=== PATIENT | female | born 1945 | race Caucasian/White ===

== ENCOUNTER 2016-09-12 08:36 | Inpatient (IN) | payer MEDICARE, OTHER ==
[~2016-09-12] VITALS: Ht 165.1 cm; Wt 72.0 kg
--- NOTE | ~2016-09-12 | ECHO ---
Transthoracic Echocardiography Report (TTE) Demographics Patient Name ELIECER WOLF Date of Study 09/14/2016 Patient Number [id number] Visit Number [id number] Date of 1945 Room Number G6306 Gender Female Number Age 71 year(s) Referring Juan Palmer MD Financial Agent Physician Janae Duran MD Physician Interpreting Janae Duran Supervisor Sheet Manufacturing Physician MD Supervising Ordering Janea Duran MD/MLP Physician Nurse Stress Product Marketing Analyst Conclusions Summary Dilated cardiomyopathy with severely reduced LV systolic function. The estimated left ventricular ejection fraction is 25-30%. Mild eccentric left ventricular hypertrophy. Diastolic assessment reveals Grade II pseudonormal diastolic function . The left atrium is moderately dilated. RV is normal in size with mildly reduced right ventricular function. There is mild pulmonary hypertension. The pulmonary pressure (RVSP) is 46 mmHg. Trivial pericardial effusion. Left sided pleural effusion. IVC imaging is consistent with normal RA pressures. Procedure Type of Study TTE procedure:2D Echocardiogram. Procedure Date Date: 09/14/2016 Start: 08:08 AM Study Location: Inpatient Portable Technical Quality: Adequate visualization Indications:Pre surgical clearance and Dyspnea/SOB. Appropriate Use Criteria: 9 Patient Status: Routine Rhythm: Sinus tachycardia HR: 88 bpm BP: 120/70 mmHg Allergies - Penicillin. - Other:(augmentin, amoxicillin, clavulanic acid). M-Mode/2D Measurements LV Diastolic Dimension: 6 cm LV Systolic Dimension: 5.77 cm LV Septum Diastolic: 1.04 cm LV Septum Systolic: 5.16 cm LV PW Diastolic: 1.16 cm AO Root Dimension: 2 cm Cardiac Output: 2.77 l/min AV Cusp Separation: 1.4 cm RV Diastolic Dimension: 1.81 cm LVOT: 2.1 cm IVC Inspiration: 0.55 cm LVOT VTI: 9.08 cm RV Base: 3.09 cm LV Stroke volume: 31.43 ml RV Length: 5.91 cm TAPSE: 1.26 cm TDI-S': 10 cm/s Doppler Measurements AV Peak Velocity: 1.17 m/s MV Peak E-Wave: 0.8 m/s AV Peak Gradient: 5.48 mmHg MV Peak A-Wave: 0.57 m/s AV Mean Gradient: 3 mmHg MV E/A Ratio: 1.41 LVOT Peak Velocity: 0.43 m/s MV P1/2t: 34 msec TR Gradient:43.82 mmHg PV Peak Velocity: 0.87 m/s Estimated RAP:3 mmHg PV Peak Gradient: 3.01 mmHg Estimated RVSP: 47 mmHg Estimated PASP: 46.82 mmHg E' Septal Velocity: 0.04 m/s A' Septal Velocity: 0.07 m/s E' Lateral Velocity: 0.05 m/s A' Lateral Velocity: 0.07 m/s MV E/E' Ratio: 17 Findings Left Ventricle The estimated left ventricular ejection fraction is 25-30%. Mild concentric left ventricular hypertrophy. Diastolic assessment reveals Grade II pseudonormal diastolic function . Right Ventricle RV is normal in size with mildly reduced right ventricular function. Left Atrium The left atrium is moderately dilated. Right Atrium Grossly normal right atrial size. IVC imaging is consistent with normal RA pressures. Mitral Valve Mild mitral regurgitation by color Doppler. Aortic Valve The aortic valve is mildly sclerotic. There is trivial aortic regurgitation by color Doppler. Tricuspid Valve Mild tricuspid regurgitation by color Doppler. There is mild pulmonary hypertension. The pulmonary pressure (RVSP) is 46 mmHg. Pulmonic Valve Mild pulmonic valve regurgitation by color Doppler. Pericardial Effusion Trivial pericardial effusion. Miscellaneous Visualized portions of the aortic root and ascending aorta appear normal in size. Pleural Effusion Left sided pleural effusion. Signature dtt: RIANA ALEXIS dtd: 09/14/16 0808 Physician Self Edit
--- NOTE | ~2016-09-12 | CON ---
PATIENT'S NAME: [facility] AGE: 71 Y [address] ROOM: [place] [address] LOCATION: GPCU ADMIT DATE: 09/12/2016 Consultation DISCHARGE DATE: FAMILY PHYSICIAN: Rudy Guo MD ATTENDING PHYSICIAN: AMANDA MARTINEZ DATE OF CONSULTATION: 09/12/2016 REFERRING PHYSICIAN: Darron De Leon REQUESTING PHYSICIAN: Dr. Martinez. REASON FOR CONSULTATION: Medical management. HISTORY OF PRESENT ILLNESS: The patient is a 71-year-old female. She is a poor historian, but past medical history as extracted is that of end-stage renal disease due to polycystic kidney, on peritoneal dialysis. She also has a history of cerebrovascular disease, status post left-sided CVA and CEA in 2003, also history of hypertension. The patient has been having a cyanotic appearing left toe for the last several weeks. She has undergone an elective angiography with Dr. Martinez today. Apparently, there were multiple blockages found, and at this point, there is a plan for femoropopliteal bypass as well as another carotid endarterectomy. At this point, the patient is comfortable. Denies any complaints aside from left great toe discomfort. PAST MEDICAL HISTORY: Essential hypertension, polycystic kidney disease, and cerebrovascular disease. PAST SURGICAL HISTORY: Significant for hysterectomy. CURRENT MEDICATIONS: 1. Aspirin. 2. Calcium carbonate. 3. Sensipar. 4. Voltaren Gel. 5. Colace. 6. Lactobacillus. 7. Levothyroxine. PATIENT'S NAME: [facility] AGE: 71 Y [address] ROOM: [place] [address] LOCATION: GPCU ADMIT DATE: 09/12/2016 Consultation DISCHARGE DATE: FAMILY PHYSICIAN: Rudy Guo MD ATTENDING PHYSICIAN: AMANDA MARTINEZ 8. Lorazepam. 9. Midodrine. 10. Omeprazole. 11. Zofran. 12. Simvastatin. 13. Sodium bicarbonate. 14. Carafate. 15. Ultram. SOCIAL HISTORY: Significant for longstanding tobacco history with the patient having quit several years ago. FAMILY HISTORY: Reviewed and significant for polycystic kidney disease in her grandmother. PHYSICAL EXAMINATION: VITAL SIGNS: At this point, temperature 97.6, pulse is 79, respirations are 20, blood pressure 115/68, and saturating 97% on room air. GENERAL: Appears as an elderly frail female, in no acute distress. NEUROLOGICAL: Nonfocal. VASCULAR: Reveals diminished pulses over the right lower extremity. PSYCHIATRIC: Reveals appropriate mood, cognition, and affect. LABORATORY DATA: No lab studies are available as of yet. IMPRESSION AND RECOMMENDATIONS: This is a 71-year-old female, who has been admitted for further workup of cerebrovascular/peripheral vascular disease. Individual problems to be addressed are, 1. Cardiac optimization. This has already been ordered. 2. End-stage renal disease, on peritoneal dialysis. This has already been addressed by the Nephrology team. 3. Orthostatic hypotension. We will continue the patient's midodrine. 4. Symptomatic support. We will provide her with pain control and antiemetics as needed. Additional management will depend on clinical course. Time dedicated to this patient's encounter is 25 minutes. PATIENT'S NAME: ELIECER WOLF [facility] AGE: 71 Y [address] ROOM: [place] [address] [facility] ADMIT DATE: 09/12/2016 Consultation DISCHARGE DATE: FAMILY PHYSICIAN: Rudy Guo MD ATTENDING PHYSICIAN: AMANDA MARTINEZ MD AVK/stephanie /[id number] d: 09/13/16 0029 t: 09/16/16 1252, CONSULTATION REPORT
--- NOTE | ~2016-09-12 | CON ---
PATIENT'S NAME: ELIECER WOLF [facility] AGE: 71 Y [address] ROOM: [address] [place], [place] [address] LOCATION: GPCU ADMIT DATE: 09/12/2016 Consultation DISCHARGE DATE: FAMILY PHYSICIAN: Rudy Guo MD ATTENDING PHYSICIAN: AMANDA MARTINEZ REFERRING PHYSICIAN: Darron De Leon REQUESTING PROVIDER: Dr. Martinez. REASON FOR CONSULTATION: Preop evaluation. CHIEF COMPLAINT: Pain in the right toe. HISTORY OF PRESENTING ILLNESS: The patient is a very pleasant 71-year-old female, who has history of significant peripheral vascular disease. She has had symptoms of pain in her right toe that has been getting worse for the past few months, especially worse after she hit her toe over the door about a few weeks ago. The patient has had previous fistula evaluation, but she decided to continue her peritoneal dialysis. She came in as an outpatient to have a peripheral angiogram today and she was noted to have significant extensive calcific peripheral vascular disease on the right side, especially in the common femoral artery area as well as some in the common iliac area as well. She underwent cath via the right brachial artery access. She also has significant peripheral vascular disease including left carotid artery stenosis, status post endarterectomy. She used to smoke several years ago about half a pack a day for about 15 years. She is currently a nonsmoker. She does have history of hypertension and hyperlipidemia. However, she does not have any history of diabetes. She has been on peritoneal dialysis for adult polycystic kidney disease and has been on peritoneal dialysis for about 2 years. The patient reports significant pain in her right great toe at this time, and she is getting narcotics for that that is helping somewhat. She reports that her dyspnea on exertion has been getting progressively worse in the last month. She is able to walk less than a block and she reports it is both her shortness of breath as well as leg pain that stop her from walking. No chest pain, tightness, pressure, or heaviness. No jaw pain or arm pain. No abdominal pain. No cough or sputum production. No fever or rashes. No changes in her vision, strength, or swallowing. She does have hip pain on the PATIENT'S NAME: [facility] AGE: 71 Y [address] ROOM: [address] [place], [place] [address] LOCATION: GPCU ADMIT DATE: 09/12/2016 Consultation DISCHARGE DATE: FAMILY PHYSICIAN: Rudy Guo MD ATTENDING PHYSICIAN: AMANDA MARTINEZ right side and muscle pain on the right thigh. CARDIAC RISK FACTORS: 1. Tobacco use. 2. Hypertension. 3. Hyperlipidemia. 4. Peripheral vascular disease. 5. Carotid stenosis. 6. End-stage renal disease. ALLERGIES: PENICILLIN CAUSES HIVES. PAST MEDICAL HISTORY: 1. Polycystic kidney disease. 2. Hypertension. 3. Hyperlipidemia. 4. Peripheral vascular disease. 5. Arthritis. 6. End-stage renal disease. 7. Insomnia. 8. Secondary hyperparathyroidism. 9. Thyroid disease. 10. GERD. 11. Anxiety. 12. Tinea unguium. PAST SURGICAL HISTORY: Bilateral nephrectomy in 01/2016, fistulogram with declotting of thrombus in 03/2015, hysterectomy, right total hip arthroplasty, left thyroidectomy, hemorrhoidectomy, left carotid endarterectomy, and right upper arm brachiocephalic AV fistula creation. FAMILY HISTORY: No premature coronary artery disease or sudden cardiac . SOCIAL HISTORY: She quit smoking. No illicit drug abuse or alcohol abuse. She drinks about 1 cup of coffee every day. HOME MEDICATIONS: She is on: 1. Aspirin 81 daily. 2. Synthroid 50 mcg daily. 3. Lorazepam 1.5 mg at bedtime. PATIENT'S NAME: ELIECER WOLF [facility] AGE: 71 Y [address] ROOM: [address] [place], [place] [address] LOCATION: GPCU ADMIT DATE: 09/12/2016 Consultation DISCHARGE DATE: FAMILY PHYSICIAN: Rudy Guo MD ATTENDING PHYSICIAN: AMANDA MARTINEZ 4. Docusate 100 mg b.i.d. 5. Midodrine 10 t.i.d. 6. Omeprazole 40 daily. 7. Zofran 4 mg p.r.n. 8. Sensipar 30 mg at bedtime. 9. Sodium bicarb 650 p.o. t.i.d. 10. Zocor 40 mg at bedtime. 11. Sucralfate 1 g p.o. t.i.d. 12. Tramadol 50 b.i.d. p.r.n. pain. 13. Diclofenac 100 t.i.d. p.r.n. hip pain. 14. Calcium carbonate 600 t.i.d. 15. Lactobacillus p.o. daily. PHYSICAL EXAMINATION: VITAL SIGNS: Respirations are 20, she is afebrile at 97.6, and O2 sats are 96% on room air. Her weight is 76.2 kg. Blood pressure is 115/68. GENERAL: She is in mild distress from pain from her right toe. She is alert and oriented to time, place, and person. SKIN: Warm and dry. Mucous membranes moist. LUNGS: Respirations nonlabored. Clear to auscultation bilaterally. HEART: S1 and S2. Regular rate and rhythm. No murmurs, gallops, or rubs. Decreased pulses bilaterally for femoral. ABDOMEN: Soft. Bowel sounds positive. EXTREMITIES: She does have discoloration of her right great toe. NEUROLOGIC: Grossly normal. No changes in her speech or strength. PSYCH: She has appropriate mood and answers questions appropriately. CARDIAC STUDIES: None. IMPRESSION AND PLAN: 1. Severe extensive and calcific peripheral vascular disease, especially noted on the right side with significantly decreased perfusion and awaiting upcoming femoral-popliteal bypass. 2. History of carotid artery stenosis, status post endarterectomy. 3. End-stage renal disease secondary to adult polycystic kidney disease and on peritoneal dialysis. 4. Dyspnea on exertion that is relatively new. 5. Hypertension. 6. Hyperlipidemia. PLAN: At this time, the patient is awaiting high-risk vascular surgery and she has several risk factors for coronary artery disease including significant peripheral vascular disease and carotid artery stenosis as well as her end- PATIENT'S NAME: ELIECER WOLF [facility] AGE: 71 Y [address] ROOM: [address] [place] [id number] [facility] AD[facility] DATE: 09/12/2016 Consultation DISCHARGE DATE: FAMILY PHYSICIAN: Rudy Guo MD ATTENDING PHYSICIAN: AMANDA MARTINEZ stage renal disease, requiring peritoneal dialysis, hypertension, hyperlipidemia put her at very high risk and pretest probability for coronary artery disease. However, I am very concerned about her dyspnea on exertion. I do understand she requires relatively urgent surgery, but I do think given her poor functional capacity and new symptoms of dyspnea on exertion, we need to work this up with a 2D echocardiogram as well as a Lexiscan nuclear stress test to make sure she does not have any hives risk findings up prior to upcoming surgery. I do encourage to continue aspirin and statins during the periop period. Based on the stress test, we will finally risk stratify, but based on the revised cardiac risk index, she is at moderate risk for periop adverse outcomes with noncardiac surgery and her estimated rate of DC, pulmonary edema, ventricular fibrillation, cardiac arrest, or complete heart block is 6.6%. If she has high risk findings on the stress test, she will need a heart catheterization. Otherwise, we will manage medically and let her get her urgent surgery given her extreme symptoms and significant peripheral vascular disease. Thank you, Dr. Martinez for allowing us to participate in the care of Mrs. Wolf. RIANA ALEXIS MD AT/modl /[id number] d: 09/12/16 2155 t: 09/15/16 1012, CONSULTATION REPORT
--- NOTE | ~2016-09-12 | CON ---
PATIENT'S NAME: LUCIANO JALIL [facility] AGE: 71 Y [address] ROOM: [place] [address] LOCATION: GPCU ADMIT DATE: 09/12/2016 Consultation DISCHARGE DATE: FAMILY PHYSICIAN: Rudy Guo MD ATTENDING PHYSICIAN: AMANDA FELIX DATE OF CONSULTATION: 10/07/2016 REFERRING PHYSICIAN: Darron De Leon INITIAL PSYCHIATRIC EVALUATION/CONSULTATION DATA: The patient is a 71-year-old female, currently admitted to [facility]. Consultation requested by Dr. Barba. DIAGNOSES: At time of evaluation, F33.2, major depressive disorder, recurrent, severe, without psychosis. RECOMMENDATIONS: As already approved by the patient after talking about risks, benefits, and side effects, we are going to continue with the Remeron 50 mg every night, but we are going to switch the Seroquel from 50 mg p.r.n. to 50 mg h.s. schedule that can be repeated when the patient is not sleeping within an hour. The patient is not currently psychotic, suicidal, or homicidal, so she can be discharged whenever medically cleared. HISTORY: This nice lady ended up in [facility] with multiple medical problems. She has been depressed, and for that reason, a psychiatric consultation was requested. I came to [facility], reviewed electronic records, the paper records, talked to the nurse for collateral information and with the patient on a [id number]. The patient is a good historian, who is telling me that she had seen psychiatrist in the past because of depression, even though she says that she has not been on antidepressant that she knows off, but she is on Remeron at present time, that was recently prescribed in the in the hospital. The patient has never been psychotic, manic, or hypomanic. No issues with obsession and compulsion, eating disorder, post traumatization, or gambling. SUBSTANCE HISTORY: Noncontributory. She is not a smoker, a drinker, or a drug user. PAST PSYCHIATRIC HISTORY: Never in a psychiatric facility. Never actually suicidal. PATIENT'S NAME: [facility] AGE: 71 Y [address] ROOM: [place] [address] LOCATION: [facility] ADMIT DATE: 09/12/2016 Consultation DISCHARGE DATE: FAMILY PHYSICIAN: Rudy Guo MD ATTENDING PHYSICIAN: AMANDA FELIX MEDICAL HISTORY: Per history and physical. PERSONAL HISTORY: She lives by herself. She is a , has been twice, has had 4 children, who are supportive of her. HISTORY OF ABUSE: Noncontributory. The patient has never been abused physically, sexually, or psychologically. FAMILY HISTORY: Noncontributory. MENTAL STATUS EXAMINATION: This is a lady, cooperative, good hygiene, good eye contact. No psychomotor agitation or retardation. Speech is normal in volume, tone, and production. Mood is described as depressed. Affect is restricted, but appropriate to thought content. Thought content is relevant. The patient is denying current suicidal or homicidal ideation. Denying any auditory or visual hallucination. No delusional thoughts. Thought process is coherent, congruent. No loosening of association. Insight and judgment seem to be fair. Memory is within normal limits. She is alert and oriented. Intelligence is average. STRENGTHS: Intelligence, access to services. BARRIERS: Just physical health. SHAN GROVE MD HG/modl /[id number] d: 10/07/16 1301 t: 10/08/16 1009, CONSULTATION REPORT
--- NOTE | ~2016-09-12 | OR ---
PATIENT'S NAME: ELIECER WOLF [facility] AGE: 71 Y [address] ROOM: [address] [address] LOCATION: GPCU ADMIT DATE: 09/12/2016 OR/Procedure Report DISCHARGE DATE: FAMILY PHYSICIAN: Rudy Guo MD ATTENDING PHYSICIAN: SPENCER MARTINEZ SURGEON: Spencer Martinez MD DIRECTOR OF CASEWORK DEPARTMENT: DATE OF PROCEDURE: 09/12/2016 PREOPERATIVE DIAGNOSIS: Critical limb ischemia of the right lower extremity. POSTOPERATIVE DIAGNOSIS: Critical limb ischemia of the right lower extremity. PROCEDURE: Aortogram and bilateral lower extremity runoff via the right brachial artery. ACTIMIZE ARCHITECT: Jonathon. ANESTHESIA: MAC local. ESTIMATED BLOOD LOSS: 25 mL. OPERATIVE FINDINGS: As follow: She had a high-grade distal aortic lesion, high-grade right common iliac lesion, high-grade right common femoral and SFA lesion with normal runoff to the right leg. The left leg had a patent common iliac, but a total occlusion of the common femoral on the left. DESCRIPTION OF PROCEDURE: The patient was brought to the Check And Transfer Beader, placed supine on the bolt labeler table, prepped and draped in a sterile manner. Preoperative time-out was performed. We gained access via the right brachial, infiltrated with 1% lidocaine. Using ultrasound guidance, I then entered the brachial artery with a micropuncture needle, followed by a micropuncture wire, followed by a micropuncture sheath. We exchanged using Seldinger technique for a 5-Faroese short sheath. We went up to the brachial artery to the axillary, entered the aorta. We then made our way down to the distal aorta below the renals. We performed a series of angiograms from the distal aorta, the findings were as above. The patient will require a common femoral endarterectomy on the right with a possible right common iliac stent. A needle in-bent, that we are unable to perform this, we will have to perform an endarterectomy on the left and then do a fem-fem bypass overall and also a left iliac stent to make sure that we have enough inflow. The sheath was removed. Pressure was held in the right arm for 10 minutes. The patient tolerated the procedure well and transferred to recovery room and then up to the floor. PATIENT'S NAME: ELIECER WOLF [facility] AGE: 71 Y [address] ROOM: [address] [place], [place] [address] LOCATION: GPCU ADMIT DATE: 09/12/2016 OR/Procedure Report DISCHARGE DATE: FAMILY PHYSICIAN: Rudy Guo MD ATTENDING PHYSICIAN: SPENCER MARTINEZ SPENCER MARTINEZ MD FKM/modl /[id number] d: 09/12/162014 t: 09/13/16 1042, OPERATIVE SUMMARY
--- NOTE | ~2016-09-12 | CON ---
PATIENT'S NAME: LUCIANO JALIL [facility] AGE: 71 Y [address] ROOM: [place] [address] LOCATION: [facility] ADMIT DATE: 09/12/2016 Consultation DISCHARGE DATE: FAMILY PHYSICIAN: Rudy Guo MD ATTENDING PHYSICIAN: AMANDA MARTINEZ DATE OF CONSULTATION: 10/01/2016 LOCATION: [place] [address]. REFERRING PHYSICIANS: Alexandria Cain APRN and Avelino Wilson D.O. REASON FOR CONSULTATION: This is a palliative care referral for the patient and family support. HISTORY OF PRESENT ILLNESS: This 71-year-old female was admitted on 09/12/2016 with coronary artery disease. She had seen her formal wear rental clerk for onychomycosis and was found to have a purple toes. She was then seen by vascular surgeon Dr. Martinez and was found to have ischemic right great toe after undergoing an ABIs. In arterial duplex scan. Multiple blockages were identified. She had a right common femoral endarterectomy with bovine pericardial patch for critical ischemia of the right lower extremity. On 09/17/2016, she has a known history of polycystic kidney disease. Had both kidneys removed. Had been on hemodialysis and then was switched to peritoneal dialysis and has now been switched back to hemodialysis. She is also found to have a cardiac stress test and found that her ejection fraction was 25% to 30%. She underwent a cardiac catheterization with 75% of left main disease in the LAD in occlusion of the circumflex. The patient had been hypotensive today and a lot of purulent drainage coming from surgical sites. Wound VAC was placed. The patient had some confusion during the night, but she is more awake now. Had severe pain in her surgical sites with packing and wound VAC on. States pain, it was terrible 10/10 and it is still hurting quite a bit even after the procedure has been done. No nausea or vomiting. Decreased appetite. Eating first meal the day about 50%. She is alert and oriented. No nausea or vomiting. Tires very easily. PAST MEDICAL HISTORY: 1. Dyslipidemia. 2. Long-standing tobacco history. 3. Hypertension. PATIENT'S NAME: [facility] AGE: 71 Y [address] ROOM: [place] [address] LOCATION: [facility]PCU ADMIT DATE: 09/12/2016 Consultation DISCHARGE DATE: FAMILY PHYSICIAN: Rudy Guo MD ATTENDING PHYSICIAN: AMANDA MARTINEZ 4. Anxiety. 5. Hyperparathyroidism. 6. Gastroesophageal reflux disease. 7. Hypothyroidism. 8. Osteoarthritis. 9. Polycystic kidney disease. 10. End-stage renal disease, on hemodialysis. 11. History C.diff. 12. Cerebrovascular disease. 13. Orthostatics hypertension, severe. 14. Peripheral vascular disease. PAST SURGICAL HISTORY: 1. Bilateral nephrectomies. 2. AV fistula creation. 3. Peritoneal dialysis catheter implant. 4. Left carotid enterectomy. 5. Hysterectomy. 6. Fistulogram. 7. Declotting of thrombus. 8. Right total hip arthroplasty. 9. Left thyroidectomy. 10. Hemorrhoidectomy. 11. Right upper arm brachiocephalic AV fistula. ALLERGIES: PENICILLIN CAUSES HIVES. SOCIAL HISTORY: The patient had been living at home in the [place]. She is . She has a daughter who lives here in [facility]. She is retired former smoker, smoked for 20 years. No alcohol use. SMOKING HISTORY: Half a pack a day for 22 years, quit in 2014. FAMILY HISTORY: Grandmother had a history of polycystic disease. HOME MEDICATIONS: 1. Aspirin 81 mg daily. 2. Tums Extra Strength 600 mg t.i.d. 3. Sensipar 30 mg at bedtime. 4. Diclofenac 1% gel applied t.i.d. for hip pain p.r.n. 5. Colace 100 mg twice a day. PATIENT'S NAME: ELIECER WOLF [facility] AGE: 71 Y [address] ROOM: [address] [place] [address] LOCATION: [facility]PCU ADMIT DATE: 09/12/2016 Consultation DISCHARGE DATE: FAMILY PHYSICIAN: Rudy Guo MD ATTENDING PHYSICIAN: AMANDA MARTINEZ 6. Probiotics one capsule daily. 7. Levothyroxine 50 mcg daily. 8. Ativan 1.5 mg at bedtime. 9. Midodrine 10 mg t.i.d. 10. Omeprazole 40 mg daily. 11. Zofran 80 mg daily p.r.n. nausea. 12. Zocor 40 mg at bedtime. 13. Sodium bicarb 650 mg t.i.d. 14. Carafate 1 g t.i.d. 15. Ultram 50 mg p.o. b.i.d. REVIEW OF SYSTEMS: A complete review of systems was done and is negative except as mentioned in HPI and listed below. GI: Decreased appetite not hungry. Last bowel movement was 09/28. GENERAL: Severe fatigue. PHYSICAL EXAMINATION: This is 71-year-old, female: VITAL SIGNS: Temperature 97.6, heart rate 101, respirations 20, blood pressure 141/63, O2 sats 96% on 5 L. She is 5 feet 5 inches, weighs 167 pounds with a BMI of 27.9. GENERAL: Alert and oriented, in no acute distress and just tires very easily. SKIN: Warm and dry. Color pale. Wound VAC to the right groin area. Dressings dry and intact on abdomen. Multiple ecchymotic areas noted on arms. HEENT: Normocephalic and atraumatic. Sclerae are nonicteric. Conjunctivae pale pink. MOUTH: [place] and moist without exudate. LYMPH: No cervical adenopathy or thyromegaly. RESPIRATORY: Clear to auscultation bilaterally. Breath sounds even and regular. CARDIAC: S1, S2 without murmurs or bruits. ABDOMEN: Soft and tender in areas around dressing. Positive bowel tones. There is no hepatosplenomegaly. MUSCULOSKELETAL: Appropriate range of motion. EXTREMITIES: No cyanosis or deformities. Palliative performance scale is 40% mainly in bed, unable do most activity, total care. Intake is reduced.Conscious level is full. IMPRESSION: 1. Pain. 2. Anorexia. 3. Fatigue. PLAN: PATIENT'S NAME: ELIECER WOLF [facility] AGE: 71 Y [address] ROOM: [address] [address] LOCATION: GPCU ADMIT DATE: 09/12/2016 Consultation DISCHARGE DATE: FAMILY PHYSICIAN: Rudy Guo MD ATTENDING PHYSICIAN: AMANDA MARTINEZ 1. Discussion of chronic condition. Met with patient and her daughter. They have a very good understanding of overall condition, more purulent drainage from wounds having to have wound VAC. The patient is concerned of extreme pain with dressing changes. Would like to get some help with pain relief and also had some drains last night that bothered the patient. We will discuss further the patient tires easily. 2. Long-term: The patient is wanting to fight and be there for her children. Hopes she will be able to go and continue her dialysis and go home with her daughter. 3. Code status and advance directive. The patient is a full code. No advanced directive is on the chart. We will explore this further looking for advanced directive. Chart states that she does have a copy. RECOMMENDATIONS: Pain, may consider using lidocaine 2% gel prior to dressing change to help decrease pain and IV Dilaudid 0.1 to 0.2 fifteen minutes prior to dressing change. If not effective may add hydromorphone add hydromorphone directly into the lidocaine gel to help with local affecting decreased systemic effects of the narcotic. Anorexia and depression mirtazapine-has been started at bedtime and is helping appetite, fatigue periods of rest,and sleeping better at night. We will continue to support patient and daughter. Total time was 45 minutes. Thank you for allowing me to assist this patient and family. CHARBEL EAGLE NP FOR MD CHELA CASTILLO/stephanie /[id number] d: 10/02/16 1002 t: 10/14/16 1023, CONSULTATION REPORT
--- NOTE | ~2016-09-12 | CATH ---
Cardiac Diagnostic Report Demographics Patient Name LUCIANO Lizarraga Gender Female Date of 1945 Age 71 year(s) Patient Number [id number] Date of Study 09/15/2016 Visit Number [id number] Room Number G62[address] [place] [id number] Ht 165.1 cm Wt 82.1 kg Referring Sari Vasquez Primary Physician Physician Juan Palmer MD Performing [place] Secondary Physician Physician Renee SALMON Diagnostic [facility] Assisting Physician Physician Renee SALMON Interventional Physician Fiscal Services Director Physician Findings and Conclusions Diagnostic Findings and Conclusion Obstructive Triple vessel CAD, including ostial LM, proximal LAD and OM2 branch. Critical lesion in mid RCA (non dominant vessel). Diagnostic Recommendations Refer for CABG. Discussed with Cardiothoracic surgeon. Procedure Description The patient was brought to the diagnostic cardiac catheterization-EP laboratory in the fasting, non-sedated state. Informed consent was obtained in the written and verbal form after the risks and benefits were explained. The patient had no further questions and agreed to proceed. The planned puncture-incision site(s) were shaved and prepped with ChloraPrep and draped in the usual sterile manner. Conscious sedation, supplemental oxygen, and pain control medications were delivered by a registered nurse under physician guidance. Surface ECG rhythm, blood pressure measurement, and pulse oximetry were monitored throughout the procedure. Arterial access. The access site was infiltrated with lidocaine. The vessel was entered with the Seldinger technique. A sheath was advanced into the vessel and used for catheter placement. Selective left coronary angiography. A catheter was advanced into the left coronary vessel ostium under Fluoroscopic guidance. Contrast was injected by hand. Images were obtained in multiple projections. Selective right coronary angiography. A catheter was advanced into the right coronary vessel ostium under fluoroscopic guidance. Contrast was injected by hand. Images were obtained in multiple projections. Left heart catheterization. A catheter was advanced across the aortic valve to the left ventricle under fluoroscopic guidance. Resting hemodynamics were obtained. Arterial artery hemostasis was achieved. The patient was transferred to a regular nursing floor via cart accompanied by a nurse. The patient left the laboratory in stable condition. Diagnostic Cath Status: Urgent Procedure Procedure Type Diagnostic procedure:Angiography:, Coronary Angios w/[facility] Indications: Non-invasive tests a cardiolite test positive, Cardiomyopathy, Dyspnea with exertion and pre surgical clearance. The procedure was explained in detail to the patient. Risks, complications and alternative treatments were reviewed. Written consent was obtained. Medications Reviewed with Patient prior to Procedure. Angiographic Findings Dominance: Mixed Cardiac Arteries and Lesion Findings LMCA: Radiolucent opacity in Left Main. No reflux of dye into guide. Dampened pressure waveforms. Lesion on LMCA: Ostial.90% stenosis . LAD: Diag small vessel. Lesion on Prox LAD: Proximal subsection.80% stenosis . Comments:calcified. LCx: Mid CX calcified. OM2 branch with 95% stenosis. Lesion on 2nd Ob Jesenia: Proximal subsection.95% stenosis . Lesion on 2nd Ob [place]enia: Mid subsection.50% stenosis . Lesion on Mid CX: Mid subsection.50% stenosis . Lesion on 1st LPL: Proximal subsection.90% stenosis . RCA: small non dominant vessel. Lesion on Mid RCA: Mid subsection.90% stenosis . Coronary Tree Procedure Data Procedure Date Date: 09/15/2016Start: 10:08 AMEnd: 11:14 AM Entry Locations - Retrograde Percutaneous access was performed through the Right Radial artery (Primary location). A 6 Fr sheath was inserted. Hemostasis was successfully obtained using Mechanical Compression. Closure Comments: Radial band applied by Santosh Mckee. 18 ml's.. Procedure Medications Order and Administration + + + + + !Time !Medication !Dosage !Route ! + + + + + !09/15/2016 10:04 AM !0.9% NaCl !10 ml/hr !I.V. drip ! + + + + + !09/15/2016 10:00 AM !Versed !1 mg !I.V. ! + + + + + !09/15/2016 10:02 AM !Fentanyl !50 mcg !I.V. ! + + + + + !09/15/2016 10:04 AM !Oxygen !2 l/min !NC ! + + + + + !09/15/2016 10:15 AM !Heparin (ACC_3) !5000 units !I.V. ! + + + + + !09/15/2016 10:24 AM !Fentanyl !50 mcg !I.V. ! + + + + + !09/15/2016 10:42 AM !Heparin (ACC_3) !2000 units !I.V. ! + + + + + !09/15/2016 11:09 AM !Oxygen ! !NC ! + + + + + Devices Used - A5 Fr. BS JR 4 Diag. Catheterwas used for:Right coronary angiography. - A5 Fr. BS JL 3.5 Diag. Catheterwas used for:Left coronary angiography.Unable to cannulate the vessel. - A5FR ULTIMATE 2 DIAGNOSTIC CATH ([id number])was used for:Left coronary angiography.Unable to cannulate the vessel. - A6 Fr. XBLAD 3.5 Guide Catheterwas used for:Left coronary angiography. - A6 Fr. JL 3 JJ Guide Catheterwas used for:Left coronary angiography. Contrast Material - Isovue [id number] ml Fluoroscopy Time: Diagnostic: 19:24 minutes. Total: 19:24 minutes. Fluoroscopy Dose: Diagnostic: 1532 mGy. Total: 1532 mGy. Estimated Blood Loss: 10 ml. Medical History Performed Procedures and Imaging Results - Stress testing with SPECT MPIwas performed. Results were: Positive. Risk/Extent of ischemia was: High risk. History of Disease + + + + !Diagnosis !Date !Comments ! + + + + !Hypertension ! ! ! + + + + Allergies - Penicillin. - Other:(augmentin, amoxicillin, clavulanic acid). Risk Factors The patient risk factors include:peripheral arterial disease, cerebrovascular disease, treated hypercholesterolemia, treated hypertension, family history of premature CAD, last creatinine: 9.5 mg/dl, creatinine clearance: 6.84 ml/min, dyslipidemia, renal failure currently treated with dialysis and former tobacco use ( years not smokin). Admission Data Admission Date: 09/12/2016 Admission Time: 12:41 PM Admit Source: Other Insurance Payors: Medicare. Admission Medications + +------+------+ + + + + !Medication !Dosage!Times !Last !Last !Administered !Comments ! ! ! !Per !Delivery !Delivery ! ! ! ! ! !Day !Date !Time ! ! ! + +------+------+ + + + + !Aspirin ! ! ! ! !Yes ! ! !(any) ! ! ! ! ! ! ! + +------+------+ + + + + !Beta ! ! ! ! !Yes ! ! !Samuel ! ! ! ! ! ! ! !(any) ! ! ! ! ! ! ! + +------+------+ + + + + !Statin ! ! ! ! !Yes ! ! !(any) ! ! ! ! ! ! ! + +------+------+ + + + + Clinical Evaluation Leading to Procedure - The patient's CAD presentation was assessed as: Unstable angina. - The patient's anginal syndrome during the past two weeks was assessed as: Class II according to the [place] Cardiovascular Society Classification System (CCS). Anti-anginal medications were prescribed during the past two weeks. The medication is: Beta Blockers. - The patient has been in a state of heart failure within the past two weeks. - The patient's heart failure status was assessed as NYHA Class III, with CHF symptoms of BAKER. - The reason for the patient's laboratory apparatus glass blower visit is evaluation of cardiomyopathy and/or evaluation of left ventricular systolic dysfunction, and pre-operative evaluation before non-cardiac surgery. Hemodynamics Condition: Rest O2 Consumption: Estimated: 185.20Heart Rate: 86 bpm Pressures (mmHg) +-----+ + !Site !Pressure ! +-----+ + !LV !136/20 ,19 ! +-----+ + !LV !135/19 ,15 ! +-----+ + !AO !159/66 (105) ! +-----+ + !AO !162/91 (118) ! +-----+ + Valve Gradients and Areas + +---------+---------+---------+ +---------+ + !Valve !Peak !Mean !Area !Index !Flow !Source ! + +---------+---------+---------+ +---------+ + !Aortic !0 !0 ! ! ! ! ! + +---------+---------+---------+ +---------+ + !Aortic !0 !0 ! ! ! ! ! + +---------+---------+---------+ +---------+ + Shunts Oxygen Values O2 Capacity 157.76 O2 Consumption 185.2 Signatures dtt: RENEE ALEXIS dtd: 09/15/16 1008 Physician Self Edit
--- NOTE | ~2016-09-12 | OR ---
PATIENT'S NAME: ELIECER WOLF [facility] AGE: 71 Y [address] ROOM: [address] [address] LOCATION: GICU ADMIT DATE: 09/12/2016 OR/Procedure Report DISCHARGE DATE: FAMILY PHYSICIAN: Rudy Guo MD ATTENDING PHYSICIAN: SPENCER FELIX SURGEON: Spencer Felix MD GREIGE GOODS EXAMINER: DATE OF PROCEDURE: 09/17/2016 PREOPERATIVE DIAGNOSIS: Critical ischemia of the right lower extremity. POSTOPERATIVE DIAGNOSIS: Critical ischemia of the right lower extremity. PROCEDURE PERFORMED: Right common femoral endarterectomy with bovine pericardial patch. MAILING MANAGER: ADELINE Eller. ANESTHESIA: General. ESTIMATED BLOOD LOSS: 150 mL. OPERATIVE FINDINGS: Minimal signal at the end of the case; however no abnormality seen on completion angiogram. DESCRIPTION OF PROCEDURE: The patient was brought to the operating room, placed supine on the operating table, prepped and draped in a sterile manner. Preoperative time-out was performed. The patient was also received in CABG, received all her invasive lines for that at the same time. We made a standard incision in the right groin, incised the fascia in a longitudinal manner. Dissected out the common, the profunda, and the superficial femoral artery. We then gave 5000 units of heparin and we clamped proximally in the common femoral artery on the SFA and as well as the profunda. We then made an arteriotomy, removed the entire plaque burden from the common femoral artery and the SFA. We then repaired the artery with a 1 x 11 bovine pericardial patch using two 6-0 running [place] sutures. We removed the clamps. We achieved hemostasis with interrupted Prolene stitches within the patch. We got a strong Doppler signals in the SFA and the profunda; however, we did not have Doppler signals in the leg and the foot. We performed a completion angiogram which showed patent vessels without any evidence of embolization, but we still do not have signal, so we opted to pass a size 3 Michelle down the SFA to see if we could find any source of embolus which we did not. We repaired the artery. We decided not to delay her CABG any further. We packed the wound and then the patient continued with the CABG. Postoperatively, her foot appeared to be doing better with a DP signal that was found in the ICU. The patient PATIENT'S NAME: ELIECER WOLF [facility] AGE: 71 Y [address] ROOM: [place] [address] LOCATION: GICU ADMIT DATE: 09/12/2016 OR/Procedure Report DISCHARGE DATE: FAMILY PHYSICIAN: Rudy Guo MD ATTENDING PHYSICIAN: SPENCER FELIX tolerated the procedure well and continued on to CABG. SPENCER FELIX MD FKM/modl /[id number] d: 09/18/16 0019 t: 09/22/16 1516, OPERATIVE SUMMARY
--- NOTE | ~2016-09-12 | CON ---
PATIENT'S NAME: [facility] AGE: 71 Y [address] ROOM: [place] [address] LOCATION: GPCU ADMIT DATE: 09/12/2016 Consultation DISCHARGE DATE: FAMILY PHYSICIAN: Rudy Guo MD ATTENDING PHYSICIAN: AMANDA MARTINEZ DATE OF CONSULTATION: 09/14/2016 REFERRING PHYSICIAN: Darron De Leon REQUESTING PHYSICIAN: Renee Cardoso MD REASON FOR CONSULTATION: Coronary artery disease. HISTORY OF PRESENT ILLNESS: The patient is a 71-year-old white female with several complicated disease processes. Just recently, she was in to see the packing and shipping clerk for onychomycosis and was found to have a purple toe. She was prompted to see a vascular surgeon. She was in to see Dr. Martinez with findings of an ischemic right great toe after having undergone ABIs and arterial duplex scan. Multiple blockages were identified. From here, the patient was set up over at [facility] for procedures to include bilateral common femoral artery endarterectomies with possible stenting to the right common femoral artery and popliteal artery stenting secondary to ischemia. The patient had been complaining of being short of breath. Therefore, cardiology was asked to see the patient. In addition, the patient has end-stage renal disease and requires daily peritoneal dialysis. The patient was admitted and evaluated. She underwent a cardiac stress test that was severely abnormal. Her ejection fraction was found to be at 25% to 30%. She underwent cardiac catheterization with 75% left main disease extending to the LAD and occlusion of the circumflex. PAST MEDICAL HISTORY: Dyslipidemia, long-standing tobacco history, hypertension, anxiety, hyperparathyroidism, GERD, hypothyroidism, osteoarthritis, polycystic kidney disease, end-stage renal disease, history of C diff, cerebrovascular disease, orthostatic hypotension, and severe peripheral vascular disease. SURGERIES/PROCEDURES: Bilateral nephrectomies, AV fistula creation, peritoneal dialysis catheter implant, left carotid endarterectomy, hysterectomy, fistulogram with declotting of thrombus, right total hip arthroplasty, left thyroidectomy, hemorrhoidectomy, and right upper arm brachiocephalic AV fistula creation. PATIENT'S NAME: [facility] AGE: 71 Y [address] ROOM: [place] [address] LOCATION: GPCU ADMIT DATE: 09/12/2016 Consultation DISCHARGE DATE: FAMILY PHYSICIAN: Rudy Guo MD ATTENDING PHYSICIAN: AMANDA MARTINEZ ALLERGIES: PENICILLIN WHICH CAUSES HIVES. SOCIAL HISTORY: The patient is . She lives in [place]. She does have children who live close by. She is retired. She is a former smoker, having smoked more than 20 years. Denies the use of alcohol. FAMILY HISTORY: Her grandmother had history with polycystic kidney disease. HOME MEDICATIONS: 1. Aspirin 81 mg daily. 2. Tums Extra Strength 600 mg t.i.d. 3. Sensipar 30 mg at h.s. 4. Diclofenac 1% gel apply t.i.d. for hip pain p.r.n. 5. Colace 100 mg twice a day. 6. Probiotic one capsule daily. 7. Levothyroxine 50 mcg daily. 8. Ativan 1.5 mg p.o. q.h.s. 9. Midodrine 10 mg p.o. t.i.d. 10. Omeprazole 40 mg daily. 11. Zofran 8 mg daily p.r.n. nausea. 12. Zocor 40 mg at h.s. 13. Sodium bicarbonate 650 mg t.i.d. 14. Carafate 1 g t.i.d. 15. Ultram 50 mg p.o. b.i.d. REVIEW OF SYSTEMS: GENERAL: No change in weight or appetite. No fever, chills, or sweats. The patient was in her normal state of health really with no cardiac symptomatology before being brought in to evaluate the purple toe for which she did stub days previous. HEENT: No visual complaints. She does wear glasses. She has dentures. No difficulty swallowing. RESPIRATORY: She has been dyspneic on exertion lately which has been new and troublesome for her. CARDIOVASCULAR: No chest pain, chest pressure, or palpitations. No intermittent claudication or edema. GASTROINTESTINAL: Some intermittent nausea. GENITOURINARY: The patient does nightly peritoneal dialysis every day. MUSCULOSKELETAL: Generalized arthritic aches and pains. NEUROLOGIC: No severe frequent headaches, seizures, or memory loss. ENDOCRINE: No history of diabetes. She does have hypothyroidism for which she takes medication. PATIENT'S NAME: ELIECER WOLF [facility] AGE: 71 Y [address] ROOM: [address] [place], [place] [address] LOCATION: GPCU ADMIT DATE: 09/12/2016 Consultation DISCHARGE DATE: FAMILY PHYSICIAN: Rudy Guo MD ATTENDING PHYSICIAN: AMANDA MARTINEZ INTEGUMENT: No known skin diseases. PHYSICAL EXAMINATION: VITAL SIGNS: Blood pressure 137/65, pulse 82, respirations 14, temperature 97.8, and O2 saturation is 88% on room air. Weight is 76.2 kg and height is 165.1 cm. GENERAL: She is very pleasant. Her children are in the room to hear the details of the bypass surgery consultation. She appears her stated age. HEENT: Normocephalic. EOM intact. NECK: No palpable lymphadenopathy or thyromegaly. LUNGS: Clear to auscultation on the anterior and bilaterally. CARDIOVASCULAR: Regular rate and rhythm, with no murmur. ABDOMEN: Soft and nontender by x4 quadrants. Positive bowel sounds throughout. EXTREMITIES: No overt varicosities or edema. Her right great toe is purple. It is reportedly not as painful with palpation as it had been the days prior. NEUROLOGIC: Alert and oriented with symmetrical strength. LAB AND TEST RESULTS: Echocardiogram with EF of 20% to 30%. No valvular abnormalities. The patient does have critical limb ischemia of the right lower extremity. Cardiac catheterization as per HPI. The patient is end-stage with chronic renal disease and a GFR of 4. IMPRESSION AND PLAN: 1. Coronary artery disease. 2. Severe peripheral vascular disease. 3. End-stage kidney disease secondary to polycystic kidney disease. Dr. Yañez has reviewed the patient's catheterization films. He has talked to Cardiology, Nephrology, Vascular Surgery, and the patient's hospitalist team. The patient will require coronary artery bypass grafting consisting of 2 vessels, this being a left internal mammary artery to the left anterior descending and a right saphenous vein graft to the obtuse marginal. In speaking with Vascular Services, Dr. Martinez and Dr. Yañez will plan for a combination surgery with 2-vessel coronary artery bypass grafting in conjunction with Dr. Martinez performing a right common femoral artery endarterectomy. Nephrology will follow for the patient's end-stage disease. Risks and benefits of the procedure were discussed. Discussion of the risks included, but were not limited to bleeding requiring transfusion or return to the operative suite, myocardial infarction, cerebrovascular accident, and renal and/or pulmonary failure. Also discussed was operative and postoperative mortality as well as arrhythmias and infection. Dr. Martinez has separately spoken to the patient with regard to his surgical procedure. The STS score regarding patient mortality is at 13.438%. This was discussed with the patient and family as well. In addition, restrictions and rehabilitation PATIENT'S NAME: ELIECER WOLF [facility] AGE: 71 Y [address] ROOM: [place] [address] [facility] ADMIT DATE: 09/12/2016 Consultation DISCHARGE DATE: FAMILY PHYSICIAN: Rudy Guo MD ATTENDING PHYSICIAN: AMANDA MARTINEZ following surgery were discussed as well as probable length of stay. Questions were asked and answered to the patient's satisfaction. She does wish to proceed with surgery. We will look at Thursday, September 17, for surgery, again in combination with Dr. Martinez. We would like to thank Dr. Cardoso for allowing us to participate in the care of this very pleasant woman. FADY MUSTAFA APRN FOR RODGER YAÑEZ, DO MCKEONQ/modl /[id number] d: 09/16/16 1527 t: 10/14/16 1133, CONSULTATION REPORT
--- NOTE | ~2016-09-12 | OR ---
PATIENT'S NAME: [facility] AGE: 71 Y [address] ROOM: [address] [address] LOCATION: GPCU ADMIT DATE: 09/12/2016 OR/Procedure Report DISCHARGE DATE: FAMILY PHYSICIAN: Rudy Guo MD ATTENDING PHYSICIAN: SPENCER MARTINEZ SURGEON: Spencer Martinez MD SUPERVISOR GARMENT MANUFACTURING: DATE OF PROCEDURE: 09/30/2016 PREOPERATIVE DIAGNOSES: Ischemic right great toe and necrotic wound of previous common femoral endarterectomy site. SUPERINTENDENT SYSTEM OPERATION: ADELINE Eller. ANESTHESIA: General. ESTIMATED FLUID LOSS: 50 mL. OPERATIVE FINDINGS: Healthy appearing bone and tissue in the right great toe and two necrotic fat necrosis removed. No real evidence of pus within the leg incisions. DESCRIPTION OF PROCEDURE: The patient was brought to the operating room, placed supine on the operating table, prepped and draped in a sterile manner. Preoperative time-out was performed. The patient was placed under general anesthesia. We began by doing the clean procedure removing the right great toe, which was ischemic. We made a circular incision at the base of the toe, resected of the bone, resected of the metatarsal head using a rongeur, achieved hemostasis. We used Bovie and then reapproximated the skin lesions with interrupted nylon sutures. We then re-prepped the patient in the groin. Once again, we sharply debrided all the necrotic tissue from the previous endarterectomy site as well as the previous drain sites as well as the vein harvest sites. The tissue did not appear grossly infected but rather just appeared to be nonhealing fat necrosis. The patient probably seems to be extremely poor and does not appear to have any ability to heal. We found no generalized pus, but we still sent cultures anyway. We copiously irrigated the wound with SurgiLav with antibiotic in the solution. We then packed the wound with Dakin-soaked solution and then covered it with ABDs. The patient tolerated the procedure well, awoke in the operating room, and transferred to the recovery room and then back to the floor. SPENCER MARTINEZ MD PATIENT'S NAME: [facility] AGE: 71 Y [address] ROOM: [address] [address] [facility] ADMIT DATE: 09/12/2016 OR/Procedure Report DISCHARGE DATE: FAMILY PHYSICIAN: Rudy Guo MD ATTENDING PHYSICIAN: SPENCER MARTINEZ/janethl /[id number] d: 09/30/162156 t: 10/01/16 1715, OPERATIVE SUMMARY
--- NOTE | ~2016-09-12 | ENPV ---
Vascular Lower Extremity Vein Mapping Procedure Demographics Patient Name ELIECER WOLF Date of Study 09/15/2016 Patient Number [id number] Gender Female Date of 1945 Age 71 Visit Number [id number] Height 65 Accession Number [id number] Weight 181 Referring Katie Landry DO Interpreting Juan Pamler MD Physician Sari Vasquez Physician Physician Ordering Physician Katie Landry Technical Services Manager DO Assistant Media Planner Emmy Estes [facility] Mike Ruiz Conclusions Summary No evidence of superficial thrombophlebitis in the bilateral lower extremities. Unable to visualize the right greater saphenous vein at the ankle. Procedure Type of Study: Veins:Lower Extremity Vein Mapping, Vein Map Bilat JOSE FRANCISCO. Indications for Study:Pre-op CABG. Appropriate Use Criteria:9 Allergies - Penicillin. - Other:(augmentin, amoxicillin, clavulanic acid). Patient Status:Routine. Study Location:Inpatient Portable. Technical Quality:Adequate visualization. Risk Factors History of Disease + + + + !Diagnosis !Date !Comments ! + + + + !Hypertension ! ! ! + + + + - The patient's risk factor(s) include: renal failure currently treated with dialysis, dyslipidemia and treated arterial hypertension. - The patient has a former tobacco history(hasn't smoked in the past 1 years). - The patient's last creatinine was 9.5 mg/dl. Velocities are measured in cm/s ; Diameters are measured in cm + ++--------++--------+ !Superficial - Great Saphenous Vein !!Right !!Left ! + ++--------++--------+ !Location !!Diameter!!Diameter! + ++--------++--------+ !Sapheno Femoral Junction !!0.6 !!0.48 ! + ++--------++--------+ !GSV High Thigh !!0.3 !!0.19 ! + ++--------++--------+ !GSV Mid Thigh !!0.13 !!0.15 ! + ++--------++--------+ !GSV Low Thigh !!0.2 !!0.21 ! + ++--------++--------+ !GSV Knee !!0.33 !!0.22 ! + ++--------++--------+ !GSV High Calf !!0.13 !!0.13 ! + ++--------++--------+ !GSV Mid Calf !!0.04 !!0.1 ! + ++--------++--------+ !GSV Low Calf !! !!0.11 ! + ++--------++--------+ Signature dtt: AMANDA FELIX dtd: 09/15/[address] [facility] Physician Self Edit
--- NOTE | ~2016-09-12 | ESTC ---
Cardiac Perfusion Imaging Demographics Patient Name LUCIANO Lizarraga Gender Female Patient Number [id number] Race Visit Number [id number] [place] [id number] Room Number G6306 Accession Number [id number] Height 165.1 inches Date of 1945 Weight 168 pounds Interpreting HEIDY Sav Kalyn Date of study 09/13/2016 Physician Janae Duran MD Supervising MD/MLP Janae Duran NM Technologist Ordering Physician Stress Swetha Day dietetic technician [facility] Stress ECG Reading Janae Duran Nurse Tacos Harvey RN Physician Procedure Admit Source:Other. Procedure Type: Nuclear Stress Test:Cardiolite Stress Test Procedure Start time: 09/13/2016 09:25 Risk Factors The patient risk factors include:peripheral arterial disease, cerebrovascular disease, former tobacco use, treated hypercholesterolemia, prior DC and ( years not smokin). Conclusions Summary Perfusion Images: The overall quality of the study is fair, due to extracardiac tracer uptake. Left ventricular cavity is noted to be enlarged on the stress and enlarged on the rest images. There is no evidence of abnormal lung activity. The right ventricle is not visualized an cannot be assessed. Impression ECG portion of the lexiscan stress test is clinically nondiagnostic for ischemia by diagnostic criteria, due to resting ST depressions in inferolateral leads. Myocardial perfusion imaging is severely abnormal. The images reveal a partially reversible defect in the entire inferolateral wall and mid to distal anterior wall consistent with summer-infarct ischemia . Overall left ventricular systolic function was abnormal. Calculated LVEF is 28% and TID ratio is 1.10. This is a high risk stress test. There are no previous studies for comparison . Stress Protocols Resting ECG NSR, st depressions in inferior and anterolateral leads. Resting HR:80 bpm Pre-stress physical exam: S1 S2 rrr clear lungs Predicted HR: 147 bpm ECG Findings Indeterminate ECG due to baseline abnormalities. Arrhythmias No rhythm abnormality. Symptoms Shortness of breath. Stress Interpretation Appropriate hemodynamic response to Lexiscan. No significant ST-T wave changes with Lexiscan. ECG portion is negative for ischemia by diagnostic criteria. Imaging Results Summed scores - Summed stress score: 12 - Summed rest score: 10 - Summed difference score: 2 Stress ejection Ejection fraction:28 % EDV :169 ml ESV :121 ml Stroke volume :48 ml LV mass :183 gr Imaging Protocols Rest Stress Isotope:Tc99m Sestamibi IV Isotope: Tc99m Sestamibi IV Isotope dose:11.5 mCi Isotope dose:36.8 mCi Date:09/13/2016 08:40 Date:09/13/2016 10:12 Technique: SPECT Technique: Gated Supine SPECT Supine IV remains in place after procedure. Scan Time:45-60 minutes post Scan Time:45-60 minutes post injection injection Procedure Medications - Regadenoson (Lexiscan) 0.4 mg IV over 10-15 sec. I.V. . Medical History Admission Data Admission date: 09/12/2016 Admission Time: 08:36 Hospital Status: Outpatient. Signatures dtt: RIANA ALEXIS dtd: 09/13/16 0925 Physician Self Edit
--- NOTE | ~2016-09-12 | CON ---
PATIENT'S NAME: ELIECER WOLF [facility] AGE: 71 Y [address] ROOM: [address] [place], [place] [address] LOCATION: GPCU ADMIT DATE: 09/12/2016 Consultation DISCHARGE DATE: FAMILY PHYSICIAN: Rudy Guo MD ATTENDING PHYSICIAN: AMANDA FELIX DATE OF CONSULTATION: 09/12/2016 REFERRING PHYSICIAN: Darron De Leon REASON FOR CONSULTATION: End-stage renal disease, need for peritoneal dialysis. 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 Nephrology consultation has been called for continuation of peritoneal dialysis. 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 She had bilateral nephrectomies before because of mechanical pain due to large volume of the kidney, also a candidate for kidney transplant, and they need to clear space for the transplanted kidney. She recently is suffering from peripheral vascular disease with significant claudication and decrease in functional capacity because of significant blockage in the common femoral artery and distal thereafter. Vascular Surgery has planned for bilateral TV HOST endarterectomies and possible right TV HOST and popliteal artery stenting. Meanwhile, the patient is getting admitted for cardiac evaluation and further preop evaluation. PD prescription, as per the patient, 4 cycles over 9 hours at night with the last fill of 2 L. she also does a midday exchange in the middle of the day and keeps it until she starts the cycle at night. Dwell volume is 2 L. She mostly uses 1.5% dextrose solution, but occasionally for increased weight gain. She mixes 1 or 2 bags of 2.5% dextrose about 2days per week. She denied any fever, chills, any abdominal pain, or any sign of infection around the PD catheter site. No chest pain, shortness of breath, orthopnea, or PND. Denied nausea, vomiting, or diarrhea. REVIEW OF SYSTEMS: GENERAL: No fever. No chills or rigor. HEENT: No sore throat. No sinus congestion. CARDIOVASCULAR: No chest pain. No exertional shortness of breath. No leg swelling. RESPIRATORY: No shortness of breath. No cough. No wheezing. GENITOURINARY: No pain with urination. No increased frequency. No nocturia. GASTROINTESTINAL: No abdominal pain. No abdominal distention. No nausea or vomiting. NEUROLOGIC: No weakness. No seizures. SKIN: No rash. No itching. ALLERGIES: No seasonal allergy. No hay fever. ENDOCRINE: No heat intolerance. No cold intolerance. PSYCHIATRIC: No sadness. No crying spells. No history of panic attack. PAST MEDICAL HISTORY: 1. 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 2. History of C diff colitis. 3. Hyperphosphatemia. 4. Hypertension. 5. Hypoalbuminemia. 6. Proteinuria.PATIENT'S NAME: ELIECER WOLF [facility] AGE: 71 Y [address] ROOM: [address] [place], [place] [address] LOCATION: GPCU ADMIT DATE: 09/12/2016 Consultation DISCHARGE DATE: FAMILY PHYSICIAN: Rudy Guo MD ATTENDING PHYSICIAN: AMANDA FELIX PAST SURGICAL HISTORY: 1. AVF creation. 2. Peritoneal dialysis catheter placement. 3. Bilateral nephrectomies. ALLERGIES: ALLERGIES TO PENICILLIN WHICH CAUSES HIVES. MEDICATIONS: As per the chart. SOCIAL HISTORY: Denied any history of smoking, alcohol, or IV drug abuse at the present time. FAMILY HISTORY: Positive family history of polycystic kidney disease and diabetes. Multiple family history of continuing dialysis. PHYSICAL EXAMINATION: VITAL SIGNS: 140s over 70s, pulse 78 to 85, respiratory rate 16, currently afebrile. GENERAL: Not in apparent distress. HEAD: Moist mucous membranes. Bilateral PERRLA, EOMI. NECK: No JVD, thyromegaly, or lymphadenopathy. CARDIOVASCULAR: S1 and S2 normal, regular rate and rhythm. No murmur, rub, or gallop. CHEST: Bilateral air entry equal. No wheeze or rales. ABDOMEN: Soft and nontender abdomen. The PD catheter site looks clean. No drainage. No erythema. Catheter tunnel is also nontender. EXTREMITIES: No cyanosis, clubbing, or jaundice. No dependent edema. MUSCULOSKELETAL: No limitation of range of motion. SKIN: No pallor, cyanosis, or icterus. CENTRAL NERVOUS SYSTEM: Alert and oriented x3. No gross findings. LABORATORY DATA: Laboratory evaluation pending currently. We do not have any blood draws since admission. ASSESSMENT: 1. Preoperative evaluation for bilateral common femoral artery endarterectomy and possible right common femoral artery and popliteal artery stenting. 2. End-stage renal failure, secondary to polycystic kidney disease. 3. Peritoneal dialysis status. 4. Clostridium difficile colitis history. 5. Hypertension. 6. Hypoalbuminemia. PATIENT'S NAME: ELIECER WOLF [facility] AGE: 71 Y [address] ROOM: [place] [address] [facility] AD[facility] DATE: 09/12/2016 Consultation DISCHARGE DATE: FAMILY PHYSICIAN: Rudy Guo MD ATTENDING PHYSICIAN: AMANDA FELIX PLAN: We will continue PD as per her current regimen; however, to skip the midday exchange due to logistic issue. We will add one cycle overnight, so we will make 5 cycles of PD over 10-1/2 hours with a dwell volume of 2 L. we will also keep a last fill of 2 L which will drain at the start of the dialysis at night. We will use mostly 1.5% dextrose solution at this point because we do not see there is any swelling, blood pressure appears to be controlled, and no shortness of breath at this point. Cardiac evaluation is underway for preoperative cardiac clearance and other evaluation. We will defer that to the primary team. Thank you for allowing me to participate in this patient's care. We will closely monitor the patient's progress along with you. Please do a renal panel and a CBC daily in a.m. during the hospital admission. PADMINI DURAN MD /modl /[id number] d: 09/12/161920 t: 09/15/161714, CONSULTATION REPORT
--- NOTE | ~2016-09-12 | CON ---
PATIENT'S NAME: [facility] AGE: 71 Y [address] ROOM: [facility] [place] [address] LOCATION: GPCU ADMIT DATE: 09/12/2016 Consultation DISCHARGE DATE: FAMILY PHYSICIAN: Rudy Guo MD ATTENDING PHYSICIAN: SPENCER MARTINEZ REFERRING PHYSICIAN: Darron De Leon Consultation is request by Dr. Spencer Martinez. REASON FOR CONSULTATION: Right groin infection. SUBJECTIVE: I am asked to see this 71-year-old female by Dr. Spencer Martinez for treatment recommendations regarding right groin infection. She also has Burkholderia in the sputum. She was admitted some time ago for coronary artery disease and coronary bypass. She subsequently has had several complications requiring procedures. She has undergone coronary artery bypass grafting, as well as right great toe amputation. She had significant purulent drainage from her right groin, and underwent surgical exploration on 09/30/2016, with the finding of significant necrotic fat. Cultures have grown Klebsiella pneumoniae. She has had a cough and dyspnea. Her chest x-ray shows consolidation. Sputum cultures have grown Burkholderia species. She is on ceftriaxone at the present time. She has not had any recent fevers, chills, or sweats. PAST MEDICAL HISTORY: End-stage renal disease due to polycystic kidney disease, status post removal of both kidneys; tobacco abuse; hypertension; gastroesophageal reflux; hyperparathyroidism; hypothyroidism; history of C. diff; cerebrovascular disease. ALLERGIES: PENICILLIN-CAUSES HIVES. CURRENT MEDICATIONS: See the MAR for complete listing. She is currently on ceftriaxone. SOCIAL HISTORY: She has a history of smoking but stopped in 2014. FAMILY HISTORY: Significant for polycystic kidney disease. REVIEW OF SYSTEMS: PATIENT'S NAME: [facility] AGE: 71 Y [address] ROOM: [address] [facility] [place] [address] LOCATION: GPCU ADMIT DATE: 09/12/2016 Consultation DISCHARGE DATE: FAMILY PHYSICIAN: Rudy Guo MD ATTENDING PHYSICIAN: SPENCER MARTINEZ A complete review of systems was carried out, and was remarkable only as noted. Please refer to the admission history and physical for details. OBJECTIVE: GENERAL: She appeared weak and tired but was comfortable and in no acute distress. She appeared nontoxic. HEENT: Posterior pharynx clear, no adenopathy or thyromegaly. Cranial nerves were intact. CHEST: Clear to auscultation. CARDIOVASCULAR: Regular rate and rhythm without S3, S4, or murmur. The sternal incision showed some puffiness, but the incision was intact without erythema or drainage. ABDOMEN: Soft, nontender, without hepatosplenomegaly or masses. EXTREMITIES: Right great toe amputation present, no erythema or drainage. The right groin site showed a VAC present. PSYCHIATRIC: Behavior and affect appropriate. NEUROLOGIC: Global muscle weakness noted, no focal deficits. LABORATORY DATA: Creatinine 3.8, alkaline phosphatase 190, AST 55. White count is 14.1. Microbiology-Blood cultures x2 10/07/2016 show no growth to date. Serum culture 10/07/2016 shows no growth. Peritoneal fluid culture 10/06/2016 shows no growth. Stool for C. diff 10/05/2016 is negative. Sputum culture 10/05/2016 shows Pseudomonas cepacia. Peritoneal fluid 10/03/2016 shows no growth to date. Right groin culture 09/30/2016 shows Klebsiella pneumoniae, sensitive to all antibiotics tested. RADIOLOGY-CHEST: Chest x-ray 10/08/2016 shows bibasilar opacities with lung consolidation and fluid. IMPRESSION: 1. Possible pneumonia with Burkholderia in the sputum-her clinical status is not highly suggestive of pneumonia, but we will cover this organism as well as the groin organism. 2. Right groin wound infection with necrotic fat, no obvious involvement of the endovascular site per, Dr. Martinez. 3. End-stage renal disease. 4. Peripheral vascular disease. Other diagnoses are stable, as noted above. PLAN: We will stop ceftriaxone and interchange agent to oral levofloxacin 500 mg every other day for two weeks. If still in the hospital, we will see her in followup in two weeks, sooner if problems arise. PATIENT'S NAME: ELIECER WOLF [facility] AGE: 71 Y [address] ROOM: [id number] [facility] [place] [address] LOCATION: GPCU ADMIT DATE: 09/12/2016 Consultation DISCHARGE DATE: FAMILY PHYSICIAN: Rudy Guo MD ATTENDING PHYSICIAN: SPENCER MARTINEZ Thank you for this consultation. I am available to answer questions by phone at [phone]. MD BELKIS LOREDO/stephanie /[id number] CC: Spencer Martinez MD d: 10/08/16 1825 t: 10/09/16 0818, CONSULTATION REPORT
--- NOTE | ~2016-09-12 | OR ---
PATIENT'S NAME: ELIECER WOLF [facility] AGE: 71 Y [address] ROOM: [address] [place], [place] [address] LOCATION: GPCU ADMIT DATE: 09/12/2016 OR/Procedure Report DISCHARGE DATE: 10/30/2016 FAMILY PHYSICIAN: Rudy Guo MD ATTENDING PHYSICIAN: Prerna Barba SURGEON: Avelino Wilson DO SYRUP MAKER COOK: DATE OF PROCEDURE: 09/16/2016 PREOPERATIVE DIAGNOSIS: Multivessel coronary artery disease. SECONDARY DIAGNOSES: 1. Peripheral vascular disease, 20% left ventricular ejection fraction. 2. End-stage renal disease requiring dialysis. 3. History of bilateral nephrectomy for polycystic disease. PROCEDURE PERFORMED: Coronary artery bypass grafting x2 with reverse saphenous vein graft to the left anterior descending artery, reverse saphenous vein graft to the obtuse marginal artery performed in an off pump fashion. REFERRING PHYSICIAN: Dr. Martinez. BRIEF HISTORY: Ms. Wolf is a 71-year-old white female with the above noted diagnosis. She was originally brought to the hospital for lower extremity ischemia and had a blue toe, and was felt to be necessary for peripheral vascular intervention during this time. She developed atrial fibrillation with rapid ventricular response and cardiac workup was undertaken. She was found to have marked coronary artery disease with very low ejection fraction. We were consulted to see her regarding this as she was not a good candidate for percutaneous intervention. After very long discussion with the patient, the family, and her multiple physicians, she has been brought to the operative suite today. She has significant peripheral vascular disease including left subclavian disease which precludes the use of her internal mammary artery. She was sterilely prepped and draped in usual fashion for sternotomy. Just prior to this procedure, Dr. Martinez performed a right common femoral endarterectomy with pericardial patch. He had done this in an open fashion. This wound was not completely closed so that we were able to harvest the saphenous vein and utilize this incision so as not to create multiple incisions on both legs given her significant peripheral vascular disease. DESCRIPTION OF PROCEDURE: The patient was brought to the operative suite, sterilely prepped and draped in usual fashion for sternotomy and lower extremity vein harvest. Sternal incision was made and the sternum was divided in midline with sternal saw. Concurrently to this, the saphenous vein was [facility] 71 Y [address] ROOM: [id number] [place], [place] [address] LOCATION: GPCU ADMIT DATE: 09/12/2016 OR/Procedure Report DISCHARGE DATE: 10/30/2016 FAMILY PHYSICIAN: Rudy Guo MD ATTENDING PHYSICIAN: Prerna Barba harvested in jump fashion from the right lower extremity in the thigh region. Sternal and marrow edges were made hemostatic with electrocautery and ostene and the sternal retractor was placed. Pericardium was opened and pericardial well was created. The vein was then prepared for bypass. The patient was fully heparinized. We began with the opening to the left anterior descending artery, off pump retractors were placed. The artery was stabilized and the artery was opened, end-to-side vein graft anastomosed to this with 7-0 Prolene. We then utilized a Heartstring device of 3.8, and a 6-0 Prolene to finish our proximal anastomosis. We then opened the vein graft to the LAD and repositioned our off pump retractors to identify the lateral wall of the heart in the obtuse marginal. This was again opened and vein anastomosed to it again in end-to-side fashion. The heart was then brought back to anatomical position and another 3.8 Heartstring was used to anastomose the vein graft to the ascending aorta. Once this was completed, the vein was de-aired and distal flow was given. The patient tolerated this procedure fairly well. We had opened each pleural space at different times to allow repositioning of the heart tolerate the bypasses. Four chest tubes were placed, one in each pleural space, one in the posterior pericardial space, and one in the anterior mediastinal space. Protamine was given. Copious amounts of antibiotic-infused saline was used to irrigate the sternum and mediastinum. Two atrial and one ventricular temporary pacemaking wires were placed and the sternum was approximated with 4 zip fix cables . The incision was then closed in a layered fashion with 0 Vicryl, 2-0 Vicryl, and 4-0 Monocryl. Prevena dressing was applied and the patient was transferred to the Intensive Care Unit in stable condition. DO HARESH HIGGINS/modl /[id number] CC: Spencer Martinez MD d: 11/06/16 1343 t: 11/06/16 1422, OPERATIVE SUMMARY
--- NOTE | ~2016-09-12 | OR ---
PATIENT'S NAME: ELIECER WOLF [facility] AGE: 71 Y [address] ROOM: [address] [address] LOCATION: GPCU ADMIT DATE: 09/12/2016 OR/Procedure Report DISCHARGE DATE: 10/30/2016 FAMILY PHYSICIAN: Rudy Guo MD ATTENDING PHYSICIAN: Prerna Barba SURGEON: Avelino Yañez DO MISSION COORDINATOR: DATE OF PROCEDURE: 09/30/2016 PREOPERATIVE DIAGNOSIS: Serous drainage from the right chest tube site. POSTOPERATIVE DIAGNOSIS: Serous drainage from the right chest tube site. PROCEDURE: I and D, opening of the chest tube site with irrigation, debridement, and closure of the site. BRIEF HISTORY: Mrs. Wolf is approximately 28 days postop from her coronary artery bypass grafting. She has developed some drainage from the chest tube site. She is in the operative suite today to have her toe amputated and while she is in under anesthesia, we wanted to do I and D of her incision. Dr. Martinez had finished his procedure. We have sterilely prepped and draped right chest tube site. The site was opened approximately 1 cm from the original incision. We extended this incision approximately 0.5 cm on each side and just found some fatty necrosis with no obvious infections. Cultures were taken. The wound was debrided and copiously irrigated and then closed in a layered fashion with 2-0 Vicryl and then Prolene with an interrupted fashion. Dressing was applied. The patient tolerated the procedure well and was transferred to the recovery area in stable condition. AVELINO YAÑEZ DO MCB/modl /[id number] d: 11/06/16 1308 t: 11/06/16 1331, OPERATIVE SUMMARY
--- NOTE | ~2016-09-12 | DS ---
[facility] 71 Y [address] ROOM: [address] [place], [place] [address] LOCATION: GPCU ADMIT DATE: 09/12/2016 Discharge Summary DISCHARGE DATE: 10/30/2016 FAMILY PHYSICIAN: Rudy Guo MD ATTENDING PHYSICIAN: Prerna Barba FINAL DIAGNOSES: 1. Peripheral vascular disease with critical ischemia and gangrene of the right great toe. 2. Coronary artery disease status post two-vessel CABG. 3. End-stage renal disease due to polycystic kidneys, initial on peritoneal dialysis converted to hemodialysis. 4. Paroxysmal atrial fibrillation with rapid ventricular response. 5. Right groin abscess with Klebsiella pneumoniae and Methicillin-resistant Staphylococcus aureus. 6. Sternal wound infection with Methicillin-resistant Staphylococcus aureus. 7. Sternal wound dehiscence. 8. Gram-negative pneumonia. 9. Acute blood loss anemia, on anemia of chronic disease. 10. Hypertension. 11. Acute encephalopathy. 12. Protein-calorie malnutrition. 13. Dialysis-induced hypotension. 14. Generalized debility. 15. Chronic systolic congestive heart failure. PROCEDURES: 1. She had bilateral aortogram with runoff on September 13, Dr. Martinez. 2. She had a common femoral endarterectomy with bovine pericardial patch on September [address] Martinez. 3. Coronary artery bypass grafting two-vessel with Dr. Wilson on September 17. 4. Right great toe amputation with debridement of the right groin abscess on September [address] Martinez. 5. Sternal wound I and D, with Dr. Wilson on October 24. 6. Tunneled dialysis catheter placed on September 22. REASON FOR ADMISSION: The patient with lower extremity ischemia, was admitted for intervention with Dr. Martinez. Please see the history and physical and consultations provided by the hospitalist. LABORATORY DATA: Has extensive amount of labs. This is discharge laboratory. Her sodium 137, potassium 4.8, chloride 103, CO2 of 25, calcium 7.7, BUN 15, creatinine 2. Magnesium was 2.1. Most recent iron studies showed her iron to be 32. Total iron binding capacity 48%, saturation 67%. Prealbumin on October 28 was 17. TSH on October 15 was 16.2. Medications were adjusted at that [facility]: [facility] 71 Y [address] ROOM: [id number] [place], [place] [address] [facility] ADMIT DATE: 09/12/2016 Discharge Summary DISCHARGE DATE: 10/30/2016 FAMILY PHYSICIAN: Rudy Guo MD ATTENDING PHYSICIAN: Prerna Barba. White blood cell count at the time of discharge was 10.8, hemoglobin 6.5, hematocrit 22.7, platelet count 183, hemoglobin day prior was 7.7. This was discussed with Dr. Trevino, very likely accepting physician at [facility]. MICROBIOLOGY DATA: Right groin was Klebsiella pneumoniae that was on September 30. The sternum on October 07 with MRSA. All other cultures were negative. PERTINENT RADIOLOGY: Ultrasound of the abdomen done on October 23 for recurrent nausea and vomiting did not show any significant abnormality. No evidence of cholelithiasis or cholecystitis. CT scan of the chest done on October 15 because of the sternal wound infection showed a large right pleural effusion, but no evidence of an abscess underneath the sternum. CARDIOVASCULAR DATA: Echocardiogram performed read by Dr. Cardoso on the showed her ejection fraction to be 25-30%. She had a left-sided pleural effusion, trivial pericardial effusion. A stress test done on the , did return positive for reversible ischemia in the inferior lateral wall. Heart catheterization showed that she had triple-vessel disease, including the ostial OM, proximal LAD, and obtuse marginal. Critical lesion in the mid RCA, please see Dr. Cardoso's full note for details. HOSPITAL COURSE: The patient was admitted initially for lower extremity ischemia. She underwent an aortogram and runoff with Dr. Martinez. At that time, it was felt that she had critical limb ischemia that needed to be addressed. The decision was made to admit her to the hospital with her multiple medical conditions. Nephrology and the hospitalists were asked to follow along. As part of the evaluation, she did have an echocardiogram as well as undergo a stress test. The stress test returned positive and she did require a cardiac catheterization. Please see Dr. Cardoso's note for full details. It was deemed that she would be appropriate for bypass. Dr. Avelino Wilson of the Cardiothoracic Surgery team was consulted. It was felt that she could undergo bypass and have the procedure on her leg done on the same day. Please see the operative notes for full details. She did undergo two-vessel CABG and had a right common femoral endarterectomy. She was admitted into the intensive care unit postoperatively and underwent routine postcardiac surgery. She was able to be extubated. Attempts were made to control her blood sugars very aggressively. Nephrology did continue to follow along and she did receive dialysis as scheduled. She was started on routine IV amiodarone. This was converted to oral amiodarone. She did receive IV iron postoperatively. Her blood sugar postoperatively were did fluctuate and it did improve. Controlling them a little bit more difficult. She was able to get off the IV insulin and converted to oral. She was able to be transferred to the floor. She did have a significant trouble with nausea postoperatively. This did interfere with her eating and she did go on to develop significant PATIENT'S NAME: ELIECER WOLF [facility] AGE: 71 Y [address] ROOM: [place] [address] LOCATION: GPCU ADMIT DATE: 09/12/2016 Discharge Summary DISCHARGE DATE: 10/30/2016 FAMILY PHYSICIAN: Rudy Guo MD ATTENDING PHYSICIAN: Prerna Barba A protein-calorie malnutrition. She was placed on multiple medications in terms of trying to keep her nausea under control. We did work very aggressively to keep her bowels working. She did receive Epogen. She was found to have a significant pleural effusion. It was found that there was leakage from her peritoneal cavity. At that time, at a tunneled dialysis catheter was placed and she did start undergoing hemodialysis. There was significant concern about her wound as it was felt that it was not healing as appropriately. She did develop significant leukocytosis. In the meantime, PT and OT did work with her. We worked very aggressively to try to improve her oral intake. The wound did progress to the point that there was significant concern and it was felt that she would need to undergo debridement. Unfortunately, she continued to have significant nausea and vomiting that did interfere with her eating and her subsequent wound healing. Attempts were made to start her on medications to stimulate her appetite. She was empirically placed on vancomycin. Dr. Martinez did take her to the OR for debridement of the groin as well as amputation of the right great toe that was progressively becoming more gangrenous throughout the hospital stay. After the debridement the nausea did improve and a wound VAC was placed. We worked to control her heart rate because she was having episodes of paroxysmal atrial fibrillation. She did have blood pressure issues. She did continue to slowly improve. She did have quite a bit of pain postprocedure and she was started on IV Dilaudid for pain. Her medications were adjusted for the infection. She had been empirically placed on vancomycin and then once some of the results came back showing that there was gram-negative in the groin, meropenem was added. She was changed to Zyvox because of her dialysis. The walk nurses did work with her very aggressively and did do the wound VAC changes. Nutrition was working with her and we did talk about using some tube feeds to help with her nutritional status overnight. A Dobbhoff was placed and she was on Nepro for little while. Her peritoneal fluid was checked to make sure that she did have peritonitis. She did develop sepsis on the . She was put on ceftriaxone at that time. Procalcitonin was obtained. It was thought that she probably had a gram-negative pneumonia, however, we did not get any culture data to support that. She did improve after being on the medications. We did OT/PT and speech continue to work with her. We did have psych see her to help with depression-type symptoms. There was concern about her sternal wound. Culture did grow MRSA. At that time, she thought that this could be covered with doxycycline based upon the sensitivities. She did complete the course of antibiotics for that. In the meantime, she continued to receive dialysis, PT and OT. She was on anticoagulation. Her protimes were adjusted to get her INR therapeutic. The palliative care nurses did follow along with her. She did develop diarrhea. She was checked for C. diff and she was C. diff negative. At this point, we were working very diligently to try and find a place for her to go for discharge. The sternal wound was monitored. Infectious Disease was seeing her and they felt that maybe we should do a CT scan to make sure that there was no evidence of substernal abscess. Please PATIENT'S NAME: ELIECER WOLF [facility] AGE: 71 Y [address] ROOM: [id number] [place] [id number] LOCATION: GPCU ADMIT DATE: 09/12/2016 Discharge Summary DISCHARGE DATE: 10/30/2016 FAMILY PHYSICIAN: Rudy Guo MD ATTENDING PHYSICIAN: Prerna Barba see the CT for full report. She did continue to improve, however, her nutritional status remained poor and she developed significant nausea and vomiting again. There was concern about her sternal wound. Dr. Wilson did take her to the OR on October 24 and did debride that area. A wound VAC was placed in there. After debridement, her nausea and vomiting improved. We did work toward finding her placement. [facility] did come and evaluate her and stated that they would be able to accept her. She did have some hypotension problems and we were adjusting her medications and at times her Coreg was being held; on the evening of October 28, she went into atrial fibrillation with a rapid ventricular response. She responded to IV medications to control her rate. She did have a drop in her hemoglobin from 9th to 10 to 11th. With the wound VAC change on the , she did have significant bleeding. She was hemodynamically stable and it was felt that she was stable for transfer. I had spoken with the physician in [place] and it was felt that she could have a transfusion in [place] upon arrival. DISCHARGE INSTRUCTIONS: She is to have ground mechanical soft diet with calorie counts. She is to have weightbearing as tolerated. PT/OT and speech therapy daily. Protimes and CBC on October 31. She had a left midline access. DISCHARGE MEDICATIONS: 1. Include aspirin 81 mg daily. 2. Zocor 40 mg at bedtime. 3. Sensipar 30 mg at night. 4. Coreg 3.125 mg twice daily. 5. Plavix 75 mg daily. 6. Colace 100 mg twice daily. 7. Gentamicin ointment to her peritoneal dialysis catheter. 8. Dilaudid 4 mg p.o. 30 minutes before dressing changes. 9. Levothyroxine 75 mcg daily. 10. Ativan 1 mg at 1900 hours. 11. ProAmatine 10 mg on Thursday, Thursday, Thursday, which are her dialysis days and then 10 mg mid-dialysis run. 12. Remeron 30 mg at bedtime. 13. Zofran 4 mg every day before breakfast. 14. Protonix 40 mg twice daily. 15. Seroquel 25 mg at bedtime. 16. Carafate 1 g at bedtime. 17. Coumadin 2 mg daily. 18. Tylenol 500-1000 mg every 8 hours as needed for pain or temperature. 19. Albumin with dialysis. 20. Orajel to her mouth ulcer 4 times daily as necessary. 21. Dulcolax 10 mg daily as needed for constipation. 22. Chloraseptic spray as needed for throat irritation. 23. Magic mouthwash 4 times daily as needed for stomatitis. PATIENT'S NAME: ELIECER WOLF [facility] AGE: 71 Y [address] ROOM: [place] [address] LOCATION: GPCU ADMIT DATE: 09/12/2016 Discharge Summary DISCHARGE DATE: 10/30/2016 FAMILY PHYSICIAN: Rudy Guo MD ATTENDING PHYSICIAN: Prerna Barba 24. Lomotil 2 mg with first loose bowel movement one tablet after each additional loose bowel movement. Maximum 6 a day. 25. Xylocaine jelly for wound VAC changes. 26. Lidocaine topically before wound changes. 27. Nitrostat 0.4 mg sublingual p.r.n. chest pain. 28. Seroquel 50 mg at bedtime p.r.n. as needed for agitation, could repeat x1. 29. Tramadol 50 mg every 6 hours as needed. 30. Proventil inhaled 2 puffs every 4 hours as needed. 31. Ferrous sulfate 325 mg daily. OVERALL PROGNOSIS AT DISCHARGE: Fair. ABEBE AGUILAR MD LAW/modl /[id number] CC: MD Avelino Sommers DO William M Sandy, MD Franz K Murphy, MD [facility] Miguel d: 10/31/161 t: 11/07/161920, DISCHARGE SUMMARY
--- NOTE | ~2016-09-12 | OR ---
PATIENT'S NAME: ELIECER WOLF [facility] AGE: 71 Y [address] ROOM: [address] [address] LOCATION: GPCU ADMIT DATE: 09/12/2016 OR/Procedure Report DISCHARGE DATE: 10/30/2016 FAMILY PHYSICIAN: Rudy Guo MD ATTENDING PHYSICIAN: Prerna Barba SURGEON: Avelino Wilson DO [employer] OPERATOR: DATE OF PROCEDURE: 10/24/2016 PREOPERATIVE DIAGNOSIS: Superficial wound dehiscence. POSTOPERATIVE DIAGNOSIS: Superficial wound dehiscence. PROCEDURE: Superficial wound debridement. BRIEF HISTORY: Mrs. Wolf is approximately 36 days from her coronary artery bypass grafting. She has had already previously exhibited very poor wound healing with dehiscence of her groin incision from her peripheral vascular surgery and has now had superficial dehiscence of her lower sternal incision. DESCRIPTION OF PROCEDURE: She has been brought to the operative suite, sterilely prepped and draped in the usual fashion for debridement. The incision was completely opened at the bottom. There was no evidence of any kind of healing at this area, nor was there any evidence of any significant infectious process, simply just lack of healing and some fatty necrosis. There was no attachment of the superficial tissues to the deeper tissues proximally, and I opened the entire length of the incision. Bone culture was taken to ensure no evidence of infection of the sternum and a superficial culture was taken as well. Incision was copiously irrigated, any fatty necrosis was excised, and a wound VAC was placed by the wound ostomy nurses. The patient tolerated the procedure well. DO HARESH HIGGINS/modl /[id number] d: 11/06/16 1231 t: 11/06/16 1329, OPERATIVE SUMMARY
[~2016-09-12 08:36] MED LIST: ASPIRIN EC81 MG PO; ATIVAN 1 MG1 MG PO; BENICAR40 MG PO; BYSTOLIC5 MG PO; CARAFATE1 GM PO; CATAPRES0.2 MG PO; CO Q-10100 MG PO; COLACE100 MG PO; FISH OIL1000 MG PO; LEVOTHROID (SY50 MCG PO; MIDODRINE HCL10 MG PO; NORCO 5-325 MG1 TAB PO; NORVASC5 MG PO; OMEPRAZOLE40 MG PO; PEPCID40 MG PO; PROBIOTIC1 EAC1 PO; SENSIPAR 30 MG30 MG PO; SODIUM BICARBO650 MG PO; TUMS X-STR300 MG PO; ULTRAM50 MG PO; VOLTAREN 1% GE100 GM TOP; ZOCOR40 MG PO; ZOFRAN4 MG PO
[2016-09-13 11:12] LABS: PERITONEAL FLUID TURBIDITY CLEAR (CLEAR)
[2016-09-13 12:11] LABS: % PERITONEAL FLUID MONO/MACRO 1 % (0-0); % PERITONEAL FLUID NEUT 85 % (0-25)
[2016-09-14 03:51] LABS: BASOPHIL # 0.1 K/uL (0.0-0.2); BASOPHIL % 0.8 %; EOSINOPHIL # 0.3 K/uL (0.0-0.5); EOSINOPHIL % 3.9 %; HEMATOCRIT 32.6 % (33.0-46.0); HEMOGLOBIN 10.3 g/dL (10.0-15.0); IMMATURE GRANULOCYTE % 0.5 %; LYMPHOCYTE # 1.2 K/uL (0.8-4.0); LYMPHOCYTE % 15.2 %; MCH 30.4 pg (27.0-34.0); MCHC 31.6 gm/dL (32.0-36.5); MCV 96.2 fl (83.0-98.0); MONOCYTE # 1.1 K/uL (0.0-1.0); MONOCYTE % 13.8 %; MPV 9.3 fl (9.4-12.4); NEUTROPHIL # (ANC) 5.2 K/uL (1.8-7.8); NEUTROPHIL % 65.8 %; NRBC % 0 /100WBC (0-0.00); PLATELET COUNT 177 K/uL (150-450); RBC 3.39 M/uL (3.50-5.50); RDW-CV 16.4 % (11.9-14.6); WBC 7.9 K/uL (4.0-11.0)
[2016-09-14 04:05] LABS: MAGNESIUM 1.8 mg/dL (1.3-2.6)
[2016-09-14 04:08] LABS: ANION GAP 15.8 (10.0-19.0); CALCIUM 6.9 mg/dL (8.5-10.5); CREATININE 9.8 mg/dL (0.5-1.1); POTASSIUM 2.8 mMol/L (3.7-5.1)
[2016-09-14 21:18] LABS: BASOPHIL # 0.1 K/uL (0.0-0.2); BASOPHIL % 0.9 %; EOSINOPHIL # 0.3 K/uL (0.0-0.5); EOSINOPHIL % 3.4 %; HEMATOCRIT 37.4 % (33.0-46.0); HEMOGLOBIN 11.6 g/dL (10.0-15.0); IMMATURE GRANULOCYTE # 0.1 K/uL (0.0-0.3); IMMATURE GRANULOCYTE % 0.7 %; LYMPHOCYTE # 1.1 K/uL (0.8-4.0); LYMPHOCYTE % 12.6 %; MCH 30.1 pg (27.0-34.0); MCV 97.1 fl (83.0-98.0); MONOCYTE # 0.9 K/uL (0.0-1.0); MONOCYTE % 10.4 %; MPV 9.6 fl (9.4-12.4); NEUTROPHIL # (ANC) 6.3 K/uL (1.8-7.8); NRBC % 0 /100WBC (0-0.00); PLATELET COUNT 201 K/uL (150-450); RBC 3.85 M/uL (3.50-5.50); RDW-CV 16.5 % (11.9-14.6); WBC 8.7 K/uL (4.0-11.0)
[2016-09-14 21:39] LABS: ALBUMIN 2.5 gm/dL (3.5-5.0); TOTAL BILIRUBIN 0.4 mg/dL (0.0-1.5); TOTAL PROTEIN 5.9 g/dL (6.0-8.4)
[2016-09-14 21:40] LABS: ANION GAP 16.8 (10.0-19.0); POTASSIUM 4.8 mMol/L (3.7-5.1)
[2016-09-14 21:41] LABS: CREATININE 9.5 mg/dL (0.5-1.1)
[2016-09-14 22:16] LABS: PROTIME 10.7 SECONDS (9.6-11.1); PTT 27 SECONDS (25-32)
[2016-09-17 13:40] LABS: PCO2 40 mmHg (35-45); PO2 185 mmHg (80-90)
[2016-09-17 13:42] LABS: POTASSIUM 3.1 mEq/L (3.7-5.1); SODIUM 133 mEq/L (135-145)
[2016-09-17 13:42] LABS: BICARBONATE 20.2 mmol/L (18.0-23.0); PCO2 37 mmHg (35-45); PO2 205 mmHg (80-90)
[2016-09-17 13:43] LABS: POTASSIUM 3.1 mEq/L (3.7-5.1); SODIUM 131 mEq/L (135-145)
[2016-09-17 13:43] LABS: PCO2 37 mmHg (35-45); PO2 127 mmHg (80-90)
[2016-09-17 13:44] LABS: BICARBONATE 23.3 mmol/L (18.0-23.0); POTASSIUM 3.4 mEq/L (3.7-5.1); SODIUM 132 mEq/L (135-145)
[2016-09-17 13:50] LABS: HEMATOCRIT 32.1 % (33.0-46.0); HEMOGLOBIN 10.2 g/dL (10.0-15.0); MCH 31.1 pg (27.0-34.0); MCHC 31.8 gm/dL (32.0-36.5); MCV 97.9 fl (83.0-98.0); MPV 9.8 fl (9.4-12.4); RBC 3.28 M/uL (3.50-5.50); RDW-CV 15.9 % (11.9-14.6); WBC 11.7 K/uL (4.0-11.0)
[2016-09-17 13:52] LABS: PLATELET COUNT 96 K/uL (150-450)
[2016-09-17 14:26] LABS: INR - (THERAPEUTIC) 1.3 (0.9-1.1); PROTIME 14.1 SECONDS (9.6-11.1); PTT 149 SECONDS (25-32)
[2016-09-17 14:27] LABS: BICARBONATE 15.5 mmol/L (18.0-23.0); PCO2 45 mmHg (35-45); PO2 175 mmHg (80-90)
[2016-09-17 14:28] LABS: POTASSIUM 2.6 mEq/L (3.7-5.1); SODIUM 132 mEq/L (135-145)
[2016-09-17 14:35] LABS: ALPHA ANGLE 60 degrees; ALPHA ANGLE 60 degrees (70-81); CLOT FORMATION TIME 156 seconds; MAXIMUM CLOT FIRMNESS 51 mm; MAXIMUM LYSIS 0 %
[2016-09-17 14:36] LABS: CLOTTING TIME 122 seconds (43-82); MAXIMUM CLOT FIRMNESS 52 mm (51-72)
[2016-09-17 14:36] LABS: PCO2 52 mmHg (35-45); PO2 187 mmHg (80-90)
[2016-09-17 14:37] LABS: CLOTTING TIME 276 seconds
[2016-09-17 14:55] LABS: ANION GAP 20.3 (10.0-19.0); CALCIUM 6.7 mg/dL (8.5-10.5); CREATININE 8.1 mg/dL (0.5-1.1); POTASSIUM 3.3 mMol/L (3.7-5.1)
[2016-09-17 17:58] LABS: HEMOGLOBIN 8.8 g/dL (10.0-15.0)
[2016-09-18 03:20] LABS: PCO2 48 mmHg (35-45)
[2016-09-18 03:23] LABS: BICARBONATE 24.2 mmol/L (18.0-23.0); PO2 67 mmHg (80-90)
[2016-09-18 03:33] LABS: ANION GAP 19.1 (10.0-19.0); POTASSIUM 4.1 mMol/L (3.7-5.1)
[2016-09-18 03:41] LABS: CALCIUM 7.4 mg/dL (8.5-10.5); CREATININE 7.2 mg/dL (0.5-1.1)
[2016-09-18 03:43] LABS: HEMATOCRIT 26.9 % (33.0-46.0); HEMOGLOBIN 8.6 g/dL (10.0-15.0); MCH 30.6 pg (27.0-34.0); MCV 95.7 fl (83.0-98.0); MPV 10.9 fl (9.4-12.4); RBC 2.81 M/uL (3.50-5.50); RDW-CV 16.4 % (11.9-14.6); WBC 11.9 K/uL (4.0-11.0)
[2016-09-19 04:50] LABS: POTASSIUM 4.6 mMol/L (3.7-5.1)
[2016-09-19 04:51] LABS: ANION GAP 17.6 (10.0-19.0); CREATININE 6.5 mg/dL (0.5-1.1)
[2016-09-19 05:15] LABS: HEMATOCRIT 25.2 % (33.0-46.0); HEMOGLOBIN 8.3 g/dL (10.0-15.0); MCH 30.9 pg (27.0-34.0); MCHC 32.9 gm/dL (32.0-36.5); MCV 93.7 fl (83.0-98.0); MPV 12.1 fl (9.4-12.4); RBC 2.69 M/uL (3.50-5.50); RDW-CV 16.5 % (11.9-14.6); WBC 12.4 K/uL (4.0-11.0)
[2016-09-20 06:11] LABS: HEMATOCRIT 28.7 % (33.0-46.0); HEMOGLOBIN 9.5 g/dL (10.0-15.0)
[2016-09-21 05:59] LABS: ALBUMIN 2.3 gm/dL (3.5-5.0); ANION GAP 14.9 (10.0-19.0); POTASSIUM 3.9 mMol/L (3.7-5.1)
[2016-09-21 06:01] LABS: CALCIUM 6.8 mg/dL (8.5-10.5); CREATININE 6.1 mg/dL (0.5-1.1)
[2016-09-21 06:09] LABS: HEMATOCRIT 31.3 % (33.0-46.0); HEMOGLOBIN 10.3 g/dL (10.0-15.0); MCHC 32.9 gm/dL (32.0-36.5); MCV 92.9 fl (83.0-98.0); RDW-CV 16.2 % (11.9-14.6); WBC 13.5 K/uL (4.0-11.0)
[2016-09-21 06:10] LABS: MCH 30.6 pg (27.0-34.0); PLATELET COUNT 153 K/uL (150-450); RBC 3.37 M/uL (3.50-5.50)
[2016-09-21 07:03] LABS: ABSOLUTE NEUTROPHIL CT (ANC) 11.9 K/uL (1.8-7.8); BANDED NEUTROPHIL # 1.2 K/uL (0.0-0.1); BANDED NEUTROPHILS % 9 %; LYMPHOCYTE # 0.7 K/uL (0.8-4.0); LYMPHOCYTE % 5 %; MONOCYTE # 0.9 K/uL (0.0-1.0); SEGMENTED NEUTROPHIL # 10.7 K/uL (1.8-7.8); SEGMENTED NEUTROPHIL % 79 %
[2016-09-22 13:09] LABS: BASOPHIL % 0.2 %; EOSINOPHIL % 0.1 %; HEMATOCRIT 32.6 % (33.0-46.0); HEMOGLOBIN 10.8 g/dL (10.0-15.0); IMMATURE GRANULOCYTE # 0.3 K/uL (0.0-0.3); IMMATURE GRANULOCYTE % 1.6 %; LYMPHOCYTE # 0.7 K/uL (0.8-4.0); LYMPHOCYTE % 3.8 %; MCH 30.7 pg (27.0-34.0); MCHC 33.1 gm/dL (32.0-36.5); MCV 92.6 fl (83.0-98.0); MONOCYTE # 1.4 K/uL (0.0-1.0); MONOCYTE % 7.6 %; MPV 10.5 fl (9.4-12.4); NEUTROPHIL # (ANC) 15.6 K/uL (1.8-7.8); NEUTROPHIL % 86.7 %; NRBC % 0.1 /100WBC (0-0.00); PLATELET COUNT 180 K/uL (150-450); RBC 3.52 M/uL (3.50-5.50); RDW-CV 16.1 % (11.9-14.6)
[2016-09-22 13:10] LABS: WBC 18.1 K/uL (4.0-11.0)
[2016-09-22 13:22] LABS: ANION GAP 18.7 (10.0-19.0); PHOSPHORUS 5.4 mg/dL (2.5-4.9); POTASSIUM 4.7 mMol/L (3.7-5.1)
[2016-09-22 13:24] LABS: CALCIUM 6.4 mg/dL (8.5-10.5); CREATININE 7.4 mg/dL (0.5-1.1)
[2016-09-22 13:28] LABS: INR - (THERAPEUTIC) 1.2 (0.9-1.1); PROTIME 12.3 SECONDS (9.6-11.1)
[2016-09-23 05:55] LABS: ALBUMIN 2.1 gm/dL (3.5-5.0); ANION GAP 13.1 (10.0-19.0); PHOSPHORUS 3.4 mg/dL (2.5-4.9); POTASSIUM 4.1 mMol/L (3.7-5.1)
[2016-09-23 05:57] LABS: CALCIUM 6.4 mg/dL (8.5-10.5)
[2016-09-25 05:37] LABS: ALBUMIN 2.7 gm/dL (3.5-5.0); ANION GAP 13.6 (10.0-19.0); CREATININE 2.6 mg/dL (0.5-1.1); POTASSIUM 4.6 mMol/L (3.7-5.1)
[2016-09-25 05:41] LABS: CALCIUM 7.1 mg/dL (8.5-10.5); PHOSPHORUS 1.6 mg/dL (2.5-4.9)
[2016-09-26 04:58] LABS: INR - (THERAPEUTIC) 1.16 (0.92-1.07); PROTIME 12.2 SECONDS (9.8-11.4)
[2016-09-26 15:59] LABS: PERITONEAL FLUID TURBIDITY CLEAR (CLEAR)
[2016-09-26 16:49] LABS: % PERITONEAL FLUID MONO/MACRO 8 % (0-0); % PERITONEAL FLUID NEUT 86 % (0-25)
[2016-09-27 05:46] LABS: INR - (THERAPEUTIC) 1.33 (0.92-1.07)
[2016-09-28 05:58] LABS: INR - (THERAPEUTIC) 2.05 (0.92-1.07); PROTIME 21.7 SECONDS (9.8-11.4)
[2016-09-28 12:48] LABS: HEMATOCRIT 30.3 % (33.0-46.0); HEMOGLOBIN 9.7 g/dL (10.0-15.0); MCH 30.4 pg (27.0-34.0); MPV 9.9 fl (9.4-12.4); RBC 3.19 M/uL (3.50-5.50); RDW-CV 17.1 % (11.9-14.6); WBC 20.9 K/uL (4.0-11.0)
[2016-09-28 12:49] LABS: PLATELET COUNT 248 K/uL (150-450)
[2016-09-28 13:01] LABS: ALBUMIN 2.1 gm/dL (3.5-5.0); ANION GAP 14.7 (10.0-19.0); CREATININE 3.9 mg/dL (0.5-1.1); POTASSIUM 4.7 mMol/L (3.7-5.1)
[2016-09-28 13:11] LABS: CALCIUM 6.6 mg/dL (8.5-10.5); PHOSPHORUS 1.6 mg/dL (2.5-4.9)
[2016-09-28 13:15] LABS: ABSOLUTE NEUTROPHIL CT (ANC) 18.6 K/uL (1.8-7.8); BANDED NEUTROPHIL # 2.3 K/uL (0.0-0.1); BANDED NEUTROPHILS % 11 %; LYMPHOCYTE # 1.5 K/uL (0.8-4.0); LYMPHOCYTE % 7 %; MONOCYTE # 0.8 K/uL (0.0-1.0); SEGMENTED NEUTROPHIL # 16.3 K/uL (1.8-7.8); SEGMENTED NEUTROPHIL % 78 %
[2016-09-29 04:16] LABS: HEMOGLOBIN 9.3 g/dL (10.0-15.0); MCH 30.2 pg (27.0-34.0); MCHC 32.1 gm/dL (32.0-36.5); MCV 94.2 fl (83.0-98.0); MPV 10.2 fl (9.4-12.4); PLATELET COUNT 200 K/uL (150-450); RBC 3.08 M/uL (3.50-5.50); RDW-CV 17.4 % (11.9-14.6); WBC 18.4 K/uL (4.0-11.0)
[2016-09-29 04:25] LABS: INR - (THERAPEUTIC) 3.27 (0.92-1.07); PROTIME 34.7 SECONDS (9.8-11.4)
[2016-09-29 04:31] LABS: PHOSPHORUS 2.2 mg/dL (2.5-4.9)
[2016-09-29 04:34] LABS: CALCIUM 6.4 mg/dL (8.5-10.5); CREATININE 4.7 mg/dL (0.5-1.1)
[2016-09-29 05:00] LABS: ABSOLUTE NEUTROPHIL CT (ANC) 14.5 K/uL (1.8-7.8); BANDED NEUTROPHIL # 3.1 K/uL (0.0-0.1); BANDED NEUTROPHILS % 17 %; LYMPHOCYTE # 1.7 K/uL (0.8-4.0); LYMPHOCYTE % 9 %; MONOCYTE # 0.9 K/uL (0.0-1.0); SEGMENTED NEUTROPHIL # 11.4 K/uL (1.8-7.8); SEGMENTED NEUTROPHIL % 62 %
[2016-09-30 06:13] LABS: HEMATOCRIT 30.1 % (33.0-46.0); HEMOGLOBIN 9.4 g/dL (10.0-15.0); MCH 30.2 pg (27.0-34.0); MCHC 31.2 gm/dL (32.0-36.5); MCV 96.8 fl (83.0-98.0); MPV 10.4 fl (9.4-12.4); PLATELET COUNT 223 K/uL (150-450); RBC 3.11 M/uL (3.50-5.50); RDW-CV 17.7 % (11.9-14.6)
[2016-09-30 06:17] LABS: WBC 19.5 K/uL (4.0-11.0)
[2016-09-30 06:22] LABS: INR - (THERAPEUTIC) 2.81 (0.92-1.07); PROTIME 29.8 SECONDS (9.8-11.4)
[2016-09-30 06:24] LABS: ALBUMIN 2.6 gm/dL (3.5-5.0); CALCIUM 6.4 mg/dL (8.5-10.5)
[2016-09-30 06:42] LABS: ABSOLUTE NEUTROPHIL CT (ANC) 15.8 K/uL (1.8-7.8); BANDED NEUTROPHIL # 1.8 K/uL (0.0-0.1); BANDED NEUTROPHILS % 9 %; LYMPHOCYTE % 10 %; MONOCYTE # 1.6 K/uL (0.0-1.0); SEGMENTED NEUTROPHIL % 72 %
[2016-10-01 04:15] LABS: HEMATOCRIT 27.3 % (33.0-46.0); HEMOGLOBIN 8.5 g/dL (10.0-15.0); MCH 29.9 pg (27.0-34.0); MCHC 31.1 gm/dL (32.0-36.5); MCV 96.1 fl (83.0-98.0); MPV 10.7 fl (9.4-12.4); PLATELET COUNT 234 K/uL (150-450); RBC 2.84 M/uL (3.50-5.50); RDW-CV 17.7 % (11.9-14.6); WBC 22.4 K/uL (4.0-11.0)
[2016-10-01 04:21] LABS: INR - (THERAPEUTIC) 3.09 (0.92-1.07); PROTIME 32.8 SECONDS (9.8-11.4)
[2016-10-01 04:35] LABS: ALBUMIN 3.2 gm/dL (3.5-5.0); ANION GAP 16.5 (10.0-19.0); CREATININE 3.7 mg/dL (0.5-1.1); PHOSPHORUS 4.3 mg/dL (2.5-4.9); POTASSIUM 4.5 mMol/L (3.7-5.1)
[2016-10-01 04:37] LABS: CALCIUM 6.3 mg/dL (8.5-10.5)
[2016-10-01 05:02] LABS: ABSOLUTE NEUTROPHIL CT (ANC) 19.5 K/uL (1.8-7.8); BANDED NEUTROPHIL # 3.4 K/uL (0.0-0.1); BANDED NEUTROPHILS % 15 %; LYMPHOCYTE # 1.3 K/uL (0.8-4.0); LYMPHOCYTE % 6 %; MONOCYTE # 0.9 K/uL (0.0-1.0); SEGMENTED NEUTROPHIL # 16.1 K/uL (1.8-7.8); SEGMENTED NEUTROPHIL % 72 %
[2016-10-02 05:27] LABS: HEMATOCRIT 29.3 % (33.0-46.0); HEMOGLOBIN 9.5 g/dL (10.0-15.0); MCH 30.4 pg (27.0-34.0); MCHC 32.4 gm/dL (32.0-36.5); MCV 93.9 fl (83.0-98.0); MPV 10.4 fl (9.4-12.4); PLATELET COUNT 237 K/uL (150-450); RBC 3.12 M/uL (3.50-5.50); RDW-CV 17.5 % (11.9-14.6)
[2016-10-02 05:28] LABS: WBC 19.6 K/uL (4.0-11.0)
[2016-10-02 05:32] LABS: INR - (THERAPEUTIC) 2.57 (0.92-1.07); PROTIME 27.2 SECONDS (9.8-11.4)
[2016-10-02 05:40] LABS: ANION GAP 12.9 (10.0-19.0); CREATININE 2.4 mg/dL (0.5-1.1); POTASSIUM 3.9 mMol/L (3.7-5.1)
[2016-10-02 05:41] LABS: CALCIUM 6.7 mg/dL (8.5-10.5); PHOSPHORUS 1.1 mg/dL (2.5-4.9)
[2016-10-02 05:51] LABS: ABSOLUTE NEUTROPHIL CT (ANC) 15.9 K/uL (1.8-7.8); BANDED NEUTROPHIL # 2.7 K/uL (0.0-0.1); BANDED NEUTROPHILS % 14 %; LYMPHOCYTE # 2.2 K/uL (0.8-4.0); LYMPHOCYTE % 11 %; MONOCYTE # 1.2 K/uL (0.0-1.0); SEGMENTED NEUTROPHIL # 13.1 K/uL (1.8-7.8); SEGMENTED NEUTROPHIL % 67 %
[2016-10-03 05:28] LABS: HEMATOCRIT 30.1 % (33.0-46.0); HEMOGLOBIN 9.5 g/dL (10.0-15.0); MCH 29.9 pg (27.0-34.0); MCHC 31.6 gm/dL (32.0-36.5); MCV 94.7 fl (83.0-98.0); MPV 10.7 fl (9.4-12.4); PLATELET COUNT 235 K/uL (150-450); RBC 3.18 M/uL (3.50-5.50); RDW-CV 17.8 % (11.9-14.6)
[2016-10-03 05:32] LABS: INR - (THERAPEUTIC) 2.54 (0.92-1.07); PROTIME 26.9 SECONDS (9.8-11.4)
[2016-10-03 05:40] LABS: ALBUMIN 2.7 gm/dL (3.5-5.0); CALCIUM 6.5 mg/dL (8.5-10.5); CREATININE 3.4 mg/dL (0.5-1.1)
[2016-10-03 05:41] LABS: PHOSPHORUS 1.2 mg/dL (2.5-4.9)
[2016-10-03 06:19] LABS: ABSOLUTE NEUTROPHIL CT (ANC) 17.6 K/uL (1.8-7.8); BANDED NEUTROPHIL # 2.4 K/uL (0.0-0.1); BANDED NEUTROPHILS % 12 %; LYMPHOCYTE # 1.6 K/uL (0.8-4.0); LYMPHOCYTE % 8 %; MONOCYTE # 0.8 K/uL (0.0-1.0); SEGMENTED NEUTROPHIL # 15.2 K/uL (1.8-7.8); SEGMENTED NEUTROPHIL % 76 %
[2016-10-03 17:06] LABS: PERITONEAL FLUID TURBIDITY 1+ (CLEAR)
[2016-10-03 17:18] LABS: AMYLASE - FLUID 70 IU/L
[2016-10-03 18:05] LABS: % PERITONEAL FLUID MONO/MACRO 16 % (0-0); % PERITONEAL FLUID NEUT 80 % (0-25)
[2016-10-04 05:11] LABS: HEMATOCRIT 28.8 % (33.0-46.0); HEMOGLOBIN 9.1 g/dL (10.0-15.0); MCH 30.2 pg (27.0-34.0); MCHC 31.6 gm/dL (32.0-36.5); MCV 95.7 fl (83.0-98.0); MPV 10.7 fl (9.4-12.4); PLATELET COUNT 209 K/uL (150-450); RBC 3.01 M/uL (3.50-5.50); RDW-CV 18.2 % (11.9-14.6)
[2016-10-04 05:19] LABS: WBC 17.1 K/uL (4.0-11.0)
[2016-10-04 05:20] LABS: INR - (THERAPEUTIC) 2.28 (0.92-1.07); PROTIME 24.1 SECONDS (9.8-11.4)
[2016-10-04 05:24] LABS: ALBUMIN 3.2 gm/dL (3.5-5.0); ANION GAP 10.6 (10.0-19.0); CREATININE 2.1 mg/dL (0.5-1.1); POTASSIUM 3.6 mMol/L (3.7-5.1)
[2016-10-04 05:26] LABS: CALCIUM 6.8 mg/dL (8.5-10.5)
[2016-10-04 05:27] LABS: PHOSPHORUS 0.7 mg/dL (2.5-4.9)
[2016-10-04 06:15] LABS: ABSOLUTE NEUTROPHIL CT (ANC) 14.7 K/uL (1.8-7.8); BANDED NEUTROPHIL # 1.9 K/uL (0.0-0.1); BANDED NEUTROPHILS % 11 %; LYMPHOCYTE % 6 %; MONOCYTE # 1.4 K/uL (0.0-1.0); SEGMENTED NEUTROPHIL # 12.8 K/uL (1.8-7.8); SEGMENTED NEUTROPHIL % 75 %
[2016-10-04 20:29] LABS: ALBUMIN 2.9 gm/dL (3.5-5.0); ANION GAP 16.4 (10.0-19.0); CREATININE 2.9 mg/dL (0.5-1.1); PHOSPHORUS 7.6 mg/dL (2.5-4.9); POTASSIUM 4.4 mMol/L (3.7-5.1)
[2016-10-04 20:33] LABS: CALCIUM 5.5 mg/dL (8.5-10.5)
[2016-10-05 03:38] LABS: BASOPHIL % 0.2 %; EOSINOPHIL # 0.1 K/uL (0.0-0.5); EOSINOPHIL % 0.4 %; HEMATOCRIT 29.4 % (33.0-46.0); HEMOGLOBIN 9.2 g/dL (10.0-15.0); IMMATURE GRANULOCYTE # 0.9 K/uL (0.0-0.3); IMMATURE GRANULOCYTE % 4.6 %; LYMPHOCYTE # 1.2 K/uL (0.8-4.0); LYMPHOCYTE % 6.1 %; MCHC 31.3 gm/dL (32.0-36.5); MCV 95.8 fl (83.0-98.0); MONOCYTE # 1.5 K/uL (0.0-1.0); MONOCYTE % 7.4 %; MPV 10.7 fl (9.4-12.4); NEUTROPHIL # (ANC) 16.1 K/uL (1.8-7.8); NEUTROPHIL % 81.3 %; NRBC % 0.9 /100WBC (0-0.00); PLATELET COUNT 203 K/uL (150-450); RBC 3.07 M/uL (3.50-5.50); RDW-CV 18.9 % (11.9-14.6)
[2016-10-05 03:41] LABS: WBC 19.7 K/uL (4.0-11.0)
[2016-10-05 03:48] LABS: INR - (THERAPEUTIC) 1.97 (0.92-1.07); PROTIME 20.8 SECONDS (9.8-11.4)
[2016-10-05 03:59] LABS: ALBUMIN 2.7 gm/dL (3.5-5.0); ANION GAP 15.1 (10.0-19.0); CREATININE 3.2 mg/dL (0.5-1.1); POTASSIUM 4.1 mMol/L (3.7-5.1); TOTAL BILIRUBIN 0.4 mg/dL (0.0-1.5); TOTAL PROTEIN 5.5 g/dL (6.0-8.4)
[2016-10-05 04:03] LABS: CALCIUM 5.7 mg/dL (8.5-10.5)
[2016-10-06 03:51] LABS: BASOPHIL # 0.1 K/uL (0.0-0.2); BASOPHIL % 0.3 %; EOSINOPHIL # 0.1 K/uL (0.0-0.5); EOSINOPHIL % 0.5 %; HEMATOCRIT 30.3 % (33.0-46.0); HEMOGLOBIN 9.7 g/dL (10.0-15.0); IMMATURE GRANULOCYTE # 0.8 K/uL (0.0-0.3); IMMATURE GRANULOCYTE % 4.8 %; LYMPHOCYTE # 1.1 K/uL (0.8-4.0); LYMPHOCYTE % 6.1 %; MCH 30.3 pg (27.0-34.0); MCV 94.7 fl (83.0-98.0); MONOCYTE # 1.3 K/uL (0.0-1.0); MONOCYTE % 7.8 %; MPV 10.4 fl (9.4-12.4); NEUTROPHIL # (ANC) 13.7 K/uL (1.8-7.8); NEUTROPHIL % 80.5 %; NRBC % 0.8 /100WBC (0-0.00); PLATELET COUNT 190 K/uL (150-450); RDW-CV 18.8 % (11.9-14.6)
[2016-10-06 03:53] LABS: WBC 17.1 K/uL (4.0-11.0)
[2016-10-06 04:03] LABS: INR - (THERAPEUTIC) 1.92 (0.92-1.07); PROTIME 20.3 SECONDS (9.8-11.4)
[2016-10-06 04:10] LABS: ALBUMIN 2.7 gm/dL (3.5-5.0); ANION GAP 13.7 (10.0-19.0); CALCIUM 7.5 mg/dL (8.5-10.5); CREATININE 2.5 mg/dL (0.5-1.1); PHOSPHORUS 2.3 mg/dL (2.5-4.9); POTASSIUM 3.7 mMol/L (3.7-5.1)
[2016-10-06 04:14] LABS: ALBUMIN 2.7 gm/dL (3.5-5.0); TOTAL PROTEIN 5.6 g/dL (6.0-8.4)
[2016-10-06 04:15] LABS: TOTAL BILIRUBIN 0.5 mg/dL (0.0-1.5)
[2016-10-06 11:26] LABS: PERITONEAL FLUID TURBIDITY 1+ (CLEAR)
[2016-10-06 12:22] LABS: % PERITONEAL FLUID MESO 5 % (0-0); % PERITONEAL FLUID MONO/MACRO 8 % (0-0); % PERITONEAL FLUID NEUT 46 % (0-25)
[2016-10-07 04:32] LABS: HEMATOCRIT 30.6 % (33.0-46.0); HEMOGLOBIN 9.6 g/dL (10.0-15.0); MCH 30.8 pg (27.0-34.0); MCHC 31.4 gm/dL (32.0-36.5); MCV 98.1 fl (83.0-98.0); MPV 10.2 fl (9.4-12.4); PLATELET COUNT 173 K/uL (150-450); RBC 3.12 M/uL (3.50-5.50); RDW-CV 19.7 % (11.9-14.6)
[2016-10-07 04:44] LABS: PROTIME 21.2 SECONDS (9.8-11.4)
[2016-10-07 04:46] LABS: ALBUMIN 3.4 gm/dL (3.5-5.0); ANION GAP 14.9 (10.0-19.0); CREATININE 2.3 mg/dL (0.5-1.1); POTASSIUM 3.9 mMol/L (3.7-5.1)
[2016-10-07 04:54] LABS: CALCIUM 7.1 mg/dL (8.5-10.5); PHOSPHORUS 1.5 mg/dL (2.5-4.9)
[2016-10-07 05:12] LABS: ABSOLUTE NEUTROPHIL CT (ANC) 12.9 K/uL (1.8-7.8); BANDED NEUTROPHIL # 1.7 K/uL (0.0-0.1); BANDED NEUTROPHILS % 11 %; LYMPHOCYTE # 0.8 K/uL (0.8-4.0); LYMPHOCYTE % 5 %; MONOCYTE # 1.1 K/uL (0.0-1.0); SEGMENTED NEUTROPHIL # 11.3 K/uL (1.8-7.8); SEGMENTED NEUTROPHIL % 75 %
[2016-10-08 04:52] LABS: BASOPHIL % 0.2 %; EOSINOPHIL # 0.3 K/uL (0.0-0.5); EOSINOPHIL % 1.9 %; HEMATOCRIT 31.6 % (33.0-46.0); HEMOGLOBIN 10.1 g/dL (10.0-15.0); IMMATURE GRANULOCYTE # 0.7 K/uL (0.0-0.3); LYMPHOCYTE # 1.4 K/uL (0.8-4.0); MCH 30.8 pg (27.0-34.0); MCV 96.3 fl (83.0-98.0); MONOCYTE # 1.5 K/uL (0.0-1.0); MONOCYTE % 10.8 %; MPV 10.2 fl (9.4-12.4); NEUTROPHIL # (ANC) 10.1 K/uL (1.8-7.8); NEUTROPHIL % 72.1 %; PLATELET COUNT 166 K/uL (150-450); RBC 3.28 M/uL (3.50-5.50); RDW-CV 20.2 % (11.9-14.6); WBC 14.1 K/uL (4.0-11.0)
[2016-10-08 05:05] LABS: INR - (THERAPEUTIC) 2.71 (0.92-1.07); PROTIME 28.7 SECONDS (9.8-11.4)
[2016-10-08 05:08] LABS: ALBUMIN 2.9 gm/dL (3.5-5.0); ANION GAP 14.8 (10.0-19.0); POTASSIUM 3.8 mMol/L (3.7-5.1)
[2016-10-08 05:10] LABS: CALCIUM 6.5 mg/dL (8.5-10.5); CREATININE 3.8 mg/dL (0.5-1.1); PHOSPHORUS 1.5 mg/dL (2.5-4.9)
[2016-10-08 13:01] LABS: PERITONEAL FLUID TURBIDITY 2+ (CLEAR)
[2016-10-08 13:33] LABS: % PERITONEAL FLUID NEUT 23 % (0-25)
[2016-10-08 13:34] LABS: % PERITONEAL FLUID MESO 10 % (0-0); % PERITONEAL FLUID MONO/MACRO 31 % (0-0)
[2016-10-09 05:59] LABS: HEMATOCRIT 29.7 % (33.0-46.0); HEMOGLOBIN 9.4 g/dL (10.0-15.0); MCHC 31.6 gm/dL (32.0-36.5); MPV 10.4 fl (9.4-12.4); PLATELET COUNT 143 K/uL (150-450); RBC 3.03 M/uL (3.50-5.50); RDW-CV 20.7 % (11.9-14.6); WBC 12.4 K/uL (4.0-11.0)
[2016-10-09 06:09] LABS: ALBUMIN 3.4 gm/dL (3.5-5.0); ANION GAP 14.1 (10.0-19.0); CALCIUM 6.8 mg/dL (8.5-10.5); CREATININE 2.2 mg/dL (0.5-1.1); PHOSPHORUS 1.5 mg/dL (2.5-4.9); POTASSIUM 4.1 mMol/L (3.7-5.1)
[2016-10-09 06:14] LABS: INR - (THERAPEUTIC) 3.3 (0.92-1.07); PROTIME 35.1 SECONDS (9.8-11.4)
[2016-10-09 07:14] LABS: ABSOLUTE NEUTROPHIL CT (ANC) 8.9 K/uL (1.8-7.8); BANDED NEUTROPHIL # 1.1 K/uL (0.0-0.1); BANDED NEUTROPHILS % 9 %; LYMPHOCYTE # 1.5 K/uL (0.8-4.0); LYMPHOCYTE % 12 %; SEGMENTED NEUTROPHIL # 7.8 K/uL (1.8-7.8); SEGMENTED NEUTROPHIL % 63 %
[2016-10-10 09:19] LABS: ANION GAP 14.7 (10.0-19.0); PHOSPHORUS 2.4 mg/dL (2.5-4.9); POTASSIUM 3.7 mMol/L (3.7-5.1)
[2016-10-10 09:20] LABS: CALCIUM 6.1 mg/dL (8.5-10.5); CREATININE 3.8 mg/dL (0.5-1.1)
[2016-10-10 10:57] LABS: BASOPHIL % 0.2 %; EOSINOPHIL # 0.2 K/uL (0.0-0.5); EOSINOPHIL % 1.4 %; HEMATOCRIT 29.9 % (33.0-46.0); HEMOGLOBIN 9.3 g/dL (10.0-15.0); IMMATURE GRANULOCYTE # 0.6 K/uL (0.0-0.3); IMMATURE GRANULOCYTE % 4.6 %; LYMPHOCYTE # 0.9 K/uL (0.8-4.0); LYMPHOCYTE % 7.4 %; MCH 30.7 pg (27.0-34.0); MCHC 31.1 gm/dL (32.0-36.5); MCV 98.7 fl (83.0-98.0); MONOCYTE # 1.1 K/uL (0.0-1.0); MONOCYTE % 8.5 %; MPV 10.5 fl (9.4-12.4); NEUTROPHIL # (ANC) 9.9 K/uL (1.8-7.8); NEUTROPHIL % 77.9 %; NRBC % 0.9 /100WBC (0-0.00); PLATELET COUNT 159 K/uL (150-450); RBC 3.03 M/uL (3.50-5.50); RDW-CV 21.3 % (11.9-14.6); WBC 12.7 K/uL (4.0-11.0)
[2016-10-10 11:05] LABS: PROTIME 27.2 SECONDS (9.8-11.4)
[2016-10-10 11:06] LABS: INR - (THERAPEUTIC) 2.57 (0.92-1.07)
[2016-10-11 05:28] LABS: HEMATOCRIT 28.6 % (33.0-46.0); HEMOGLOBIN 8.9 g/dL (10.0-15.0); MCH 31.3 pg (27.0-34.0); MCHC 31.1 gm/dL (32.0-36.5); MCV 100.7 fl (83.0-98.0); MPV 10.8 fl (9.4-12.4); PLATELET COUNT 171 K/uL (150-450); RBC 2.84 M/uL (3.50-5.50); RDW-CV 22.2 % (11.9-14.6)
[2016-10-11 05:32] LABS: INR - (THERAPEUTIC) 2.09 (0.92-1.07); PROTIME 22.1 SECONDS (9.8-11.4)
[2016-10-11 05:40] LABS: ALBUMIN 3.1 gm/dL (3.5-5.0); ANION GAP 13.2 (10.0-19.0); CREATININE 2.3 mg/dL (0.5-1.1); POTASSIUM 4.2 mMol/L (3.7-5.1)
[2016-10-11 05:43] LABS: CALCIUM 6.4 mg/dL (8.5-10.5); PHOSPHORUS 1.9 mg/dL (2.5-4.9)
[2016-10-11 06:07] LABS: ABSOLUTE NEUTROPHIL CT (ANC) 9.7 K/uL (1.8-7.8); LYMPHOCYTE # 1.2 K/uL (0.8-4.0); LYMPHOCYTE % 10 %; SEGMENTED NEUTROPHIL # 9.7 K/uL (1.8-7.8); SEGMENTED NEUTROPHIL % 81 %
[2016-10-12 06:40] LABS: HEMATOCRIT 29.9 % (33.0-46.0); HEMOGLOBIN 9.2 g/dL (10.0-15.0); MCH 30.8 pg (27.0-34.0); MCHC 30.8 gm/dL (32.0-36.5); MPV 10.3 fl (9.4-12.4); PLATELET COUNT 178 K/uL (150-450); RBC 2.99 M/uL (3.50-5.50); RDW-CV 22.7 % (11.9-14.6); WBC 10.7 K/uL (4.0-11.0)
[2016-10-12 06:46] LABS: INR - (THERAPEUTIC) 1.88 (0.92-1.07); PROTIME 19.9 SECONDS (9.8-11.4)
[2016-10-12 06:53] LABS: PHOSPHORUS 3.5 mg/dL (2.5-4.9)
[2016-10-12 06:54] LABS: CALCIUM 6.5 mg/dL (8.5-10.5); CREATININE 3.8 mg/dL (0.5-1.1)
[2016-10-12 07:18] LABS: ABSOLUTE NEUTROPHIL CT (ANC) 8.1 K/uL (1.8-7.8); BANDED NEUTROPHILS % 9 %; LYMPHOCYTE # 1.3 K/uL (0.8-4.0); LYMPHOCYTE % 12 %; MONOCYTE # 0.6 K/uL (0.0-1.0); SEGMENTED NEUTROPHIL # 7.2 K/uL (1.8-7.8); SEGMENTED NEUTROPHIL % 67 %
[2016-10-13 09:01] LABS: BASOPHIL % 0.4 %; EOSINOPHIL # 0.3 K/uL (0.0-0.5); EOSINOPHIL % 2.7 %; HEMATOCRIT 26.3 % (33.0-46.0); IMMATURE GRANULOCYTE # 0.5 K/uL (0.0-0.3); IMMATURE GRANULOCYTE % 4.2 %; LYMPHOCYTE % 9.1 %; MCH 30.7 pg (27.0-34.0); MCHC 30.4 gm/dL (32.0-36.5); MCV 100.8 fl (83.0-98.0); MONOCYTE # 1.1 K/uL (0.0-1.0); MONOCYTE % 10.3 %; MPV 10.4 fl (9.4-12.4); NEUTROPHIL % 73.3 %; NRBC % 0.3 /100WBC (0-0.00); PLATELET COUNT 185 K/uL (150-450); RBC 2.61 M/uL (3.50-5.50); RDW-CV 22.5 % (11.9-14.6); WBC 10.9 K/uL (4.0-11.0)
[2016-10-13 09:13] LABS: INR - (THERAPEUTIC) 3.11 (0.92-1.07)
[2016-10-13 09:18] LABS: ALBUMIN 2.7 gm/dL (3.5-5.0); ANION GAP 18.2 (10.0-19.0); POTASSIUM 4.2 mMol/L (3.7-5.1)
[2016-10-13 09:19] LABS: CALCIUM 6.3 mg/dL (8.5-10.5); CREATININE 5.1 mg/dL (0.5-1.1)
[2016-10-14 05:39] LABS: BASOPHIL # 0.1 K/uL (0.0-0.2); BASOPHIL % 0.5 %; EOSINOPHIL # 0.3 K/uL (0.0-0.5); EOSINOPHIL % 2.5 %; HEMATOCRIT 29.8 % (33.0-46.0); HEMOGLOBIN 9.2 g/dL (10.0-15.0); IMMATURE GRANULOCYTE # 0.5 K/uL (0.0-0.3); IMMATURE GRANULOCYTE % 4.3 %; LYMPHOCYTE # 1.2 K/uL (0.8-4.0); LYMPHOCYTE % 11.4 %; MCH 31.2 pg (27.0-34.0); MCHC 30.9 gm/dL (32.0-36.5); MONOCYTE # 1.3 K/uL (0.0-1.0); MONOCYTE % 12.2 %; MPV 10.1 fl (9.4-12.4); NEUTROPHIL # (ANC) 7.5 K/uL (1.8-7.8); NEUTROPHIL % 69.1 %; NRBC % 0.5 /100WBC (0-0.00); PLATELET COUNT 183 K/uL (150-450); RBC 2.95 M/uL (3.50-5.50); RDW-CV 23.5 % (11.9-14.6); WBC 10.8 K/uL (4.0-11.0)
[2016-10-14 05:46] LABS: INR - (THERAPEUTIC) 1.76 (0.92-1.07); PROTIME 18.6 SECONDS (9.8-11.4)
[2016-10-14 05:55] LABS: ANION GAP 13.3 (10.0-19.0); CREATININE 2.7 mg/dL (0.5-1.1); POTASSIUM 4.3 mMol/L (3.7-5.1)
[2016-10-14 05:57] LABS: CALCIUM 6.5 mg/dL (8.5-10.5)
[2016-10-15 10:48] LABS: INR - (THERAPEUTIC) 1.58 (0.92-1.07); PROTIME 16.7 SECONDS (9.8-11.4)
[2016-10-15 10:54] LABS: ANION GAP 17.9 (10.0-19.0); POTASSIUM 4.9 mMol/L (3.7-5.1)
[2016-10-15 10:57] LABS: BASOPHIL # 0.1 K/uL (0.0-0.2); BASOPHIL % 0.6 %; CALCIUM 6.6 mg/dL (8.5-10.5); CREATININE 4.4 mg/dL (0.5-1.1); EOSINOPHIL # 0.4 K/uL (0.0-0.5); EOSINOPHIL % 3.7 %; HEMATOCRIT 34.5 % (33.0-46.0); HEMOGLOBIN 10.8 g/dL (10.0-15.0); IMMATURE GRANULOCYTE # 0.5 K/uL (0.0-0.3); IMMATURE GRANULOCYTE % 4.2 %; LYMPHOCYTE # 1.1 K/uL (0.8-4.0); LYMPHOCYTE % 10.4 %; MCH 31.3 pg (27.0-34.0); MCHC 31.3 gm/dL (32.0-36.5); MONOCYTE # 1.3 K/uL (0.0-1.0); MONOCYTE % 11.9 %; MPV 9.8 fl (9.4-12.4); NEUTROPHIL # (ANC) 7.5 K/uL (1.8-7.8); NEUTROPHIL % 69.2 %; NRBC % 0.2 /100WBC (0-0.00); PLATELET COUNT 199 K/uL (150-450); RBC 3.45 M/uL (3.50-5.50); RDW-CV 23.7 % (11.9-14.6); WBC 10.9 K/uL (4.0-11.0)
[2016-10-15 11:47] LABS: ALBUMIN 2.8 gm/dL (3.5-5.0); PHOSPHORUS 5.1 mg/dL (2.5-4.9)
[2016-10-16 06:11] LABS: BASOPHIL # 0.1 K/uL (0.0-0.2); BASOPHIL % 0.6 %; EOSINOPHIL # 0.4 K/uL (0.0-0.5); EOSINOPHIL % 3.6 %; HEMATOCRIT 29.9 % (33.0-46.0); HEMOGLOBIN 9.1 g/dL (10.0-15.0); IMMATURE GRANULOCYTE # 0.4 K/uL (0.0-0.3); IMMATURE GRANULOCYTE % 3.9 %; LYMPHOCYTE # 1.2 K/uL (0.8-4.0); LYMPHOCYTE % 12.6 %; MCHC 30.4 gm/dL (32.0-36.5); MCV 101.7 fl (83.0-98.0); MONOCYTE # 1.1 K/uL (0.0-1.0); MONOCYTE % 11.8 %; MPV 10.2 fl (9.4-12.4); NEUTROPHIL # (ANC) 6.5 K/uL (1.8-7.8); NEUTROPHIL % 67.5 %; NRBC % 0.5 /100WBC (0-0.00); PLATELET COUNT 182 K/uL (150-450); RBC 2.94 M/uL (3.50-5.50); RDW-CV 23.8 % (11.9-14.6); WBC 9.6 K/uL (4.0-11.0)
[2016-10-16 06:21] LABS: INR - (THERAPEUTIC) 1.63 (0.92-1.07); PROTIME 17.2 SECONDS (9.8-11.4)
[2016-10-17 08:29] LABS: BASOPHIL # 0.1 K/uL (0.0-0.2); BASOPHIL % 0.5 %; EOSINOPHIL # 0.4 K/uL (0.0-0.5); EOSINOPHIL % 3.6 %; HEMOGLOBIN 8.5 g/dL (10.0-15.0); IMMATURE GRANULOCYTE # 0.4 K/uL (0.0-0.3); IMMATURE GRANULOCYTE % 3.3 %; LYMPHOCYTE # 1.4 K/uL (0.8-4.0); LYMPHOCYTE % 12.9 %; MCH 31.8 pg (27.0-34.0); MCHC 31.5 gm/dL (32.0-36.5); MCV 101.1 fl (83.0-98.0); MONOCYTE # 1.4 K/uL (0.0-1.0); MONOCYTE % 12.5 %; NEUTROPHIL # (ANC) 7.3 K/uL (1.8-7.8); NEUTROPHIL % 67.2 %; NRBC % 0 /100WBC (0-0.00); PLATELET COUNT 215 K/uL (150-450); RBC 2.67 M/uL (3.50-5.50); RDW-CV 23.5 % (11.9-14.6); WBC 10.8 K/uL (4.0-11.0)
[2016-10-17 08:37] LABS: INR - (THERAPEUTIC) 2.63 (0.92-1.07); PROTIME 27.9 SECONDS (9.8-11.4)
[2016-10-18 05:24] LABS: BASOPHIL # 0.1 K/uL (0.0-0.2); BASOPHIL % 0.5 %; EOSINOPHIL # 0.5 K/uL (0.0-0.5); EOSINOPHIL % 4.5 %; HEMATOCRIT 29.5 % (33.0-46.0); IMMATURE GRANULOCYTE # 0.4 K/uL (0.0-0.3); IMMATURE GRANULOCYTE % 3.8 %; LYMPHOCYTE # 1.4 K/uL (0.8-4.0); MCH 31.4 pg (27.0-34.0); MCHC 30.5 gm/dL (32.0-36.5); MCV 102.8 fl (83.0-98.0); MONOCYTE # 1.3 K/uL (0.0-1.0); MONOCYTE % 13.4 %; MPV 9.9 fl (9.4-12.4); NEUTROPHIL # (ANC) 6.4 K/uL (1.8-7.8); NEUTROPHIL % 63.8 %; NRBC % 0.4 /100WBC (0-0.00); PLATELET COUNT 190 K/uL (150-450); RBC 2.87 M/uL (3.50-5.50); RDW-CV 24.3 % (11.9-14.6)
[2016-10-18 05:30] LABS: INR - (THERAPEUTIC) 1.95 (0.92-1.07); PROTIME 20.6 SECONDS (9.8-11.4)
[2016-10-18 05:32] LABS: ANION GAP 13.1 (10.0-19.0); CALCIUM 6.9 mg/dL (8.5-10.5); CREATININE 2.2 mg/dL (0.5-1.1); POTASSIUM 4.1 mMol/L (3.7-5.1)
[2016-10-19 02:48] LABS: BASOPHIL % 0.3 %; EOSINOPHIL # 0.3 K/uL (0.0-0.5); EOSINOPHIL % 3.4 %; HEMATOCRIT 30.5 % (33.0-46.0); HEMOGLOBIN 9.3 g/dL (10.0-15.0); IMMATURE GRANULOCYTE # 0.5 K/uL (0.0-0.3); IMMATURE GRANULOCYTE % 5.1 %; LYMPHOCYTE # 1.3 K/uL (0.8-4.0); LYMPHOCYTE % 14.1 %; MCH 31.2 pg (27.0-34.0); MCHC 30.5 gm/dL (32.0-36.5); MCV 102.3 fl (83.0-98.0); MONOCYTE # 0.9 K/uL (0.0-1.0); MONOCYTE % 9.7 %; MPV 10.9 fl (9.4-12.4); NEUTROPHIL # (ANC) 6.1 K/uL (1.8-7.8); NEUTROPHIL % 67.4 %; NRBC % 0.2 /100WBC (0-0.00); PLATELET COUNT 59 K/uL (150-450); PROTIME 21.1 SECONDS (9.8-11.4); RBC 2.98 M/uL (3.50-5.50); RDW-CV 23.8 % (11.9-14.6)
[2016-10-19 02:49] LABS: ANION GAP 16.1 (10.0-19.0); CALCIUM 6.3 mg/dL (8.5-10.5); CREATININE 3.5 mg/dL (0.5-1.1); POTASSIUM 4.1 mMol/L (3.7-5.1)
[2016-10-20 08:54] LABS: INR - (THERAPEUTIC) 2.82 (0.92-1.07); PROTIME 29.9 SECONDS (9.8-11.4)
[2016-10-20 09:03] LABS: ALBUMIN 2.7 gm/dL (3.5-5.0); ANION GAP 18.5 (10.0-19.0); POTASSIUM 4.5 mMol/L (3.7-5.1)
[2016-10-20 09:09] LABS: CALCIUM 5.9 mg/dL (8.5-10.5); CREATININE 5.1 mg/dL (0.5-1.1)
[2016-10-20 09:10] LABS: PHOSPHORUS 8.9 mg/dL (2.5-4.9)
[2016-10-20 09:13] LABS: BASOPHIL # 0.1 K/uL (0.0-0.2); BASOPHIL % 0.4 %; EOSINOPHIL # 0.4 K/uL (0.0-0.5); EOSINOPHIL % 3.1 %; HEMOGLOBIN 8.6 g/dL (10.0-15.0); IMMATURE GRANULOCYTE # 0.4 K/uL (0.0-0.3); IMMATURE GRANULOCYTE % 3.3 %; LYMPHOCYTE # 1.2 K/uL (0.8-4.0); LYMPHOCYTE % 10.3 %; MCHC 30.7 gm/dL (32.0-36.5); MCV 101.1 fl (83.0-98.0); MONOCYTE # 1.1 K/uL (0.0-1.0); MONOCYTE % 9.2 %; MPV 9.7 fl (9.4-12.4); NEUTROPHIL # (ANC) 8.4 K/uL (1.8-7.8); NEUTROPHIL % 73.7 %; NRBC % 0 /100WBC (0-0.00); RBC 2.77 M/uL (3.50-5.50); RDW-CV 23.3 % (11.9-14.6); WBC 11.4 K/uL (4.0-11.0)
[2016-10-20 09:17] LABS: PLATELET COUNT 196 K/uL (150-450)
[2016-10-21 05:32] LABS: HEMOGLOBIN 8.9 g/dL (10.0-15.0); MCH 31.4 pg (27.0-34.0); MCHC 30.7 gm/dL (32.0-36.5); MCV 102.5 fl (83.0-98.0); PLATELET COUNT 188 K/uL (150-450); RBC 2.83 M/uL (3.50-5.50); RDW-CV 23.8 % (11.9-14.6); WBC 10.3 K/uL (4.0-11.0)
[2016-10-21 05:41] LABS: INR - (THERAPEUTIC) 2.5 (0.92-1.07); PROTIME 26.5 SECONDS (9.8-11.4)
[2016-10-21 05:48] LABS: ALBUMIN 3.4 gm/dL (3.5-5.0); ANION GAP 13.3 (10.0-19.0); CALCIUM 7.5 mg/dL (8.5-10.5); CREATININE 2.8 mg/dL (0.5-1.1); MAGNESIUM 1.9 mg/dL (1.8-2.6); PHOSPHORUS 5.8 mg/dL (2.5-4.9); POTASSIUM 4.3 mMol/L (3.7-5.1)
[2016-10-21 05:55] LABS: ABSOLUTE NEUTROPHIL CT (ANC) 7.5 K/uL (1.8-7.8); BANDED NEUTROPHIL # 1.3 K/uL (0.0-0.1); BANDED NEUTROPHILS % 13 %; LYMPHOCYTE # 1.9 K/uL (0.8-4.0); LYMPHOCYTE % 18 %; MONOCYTE # 0.5 K/uL (0.0-1.0); SEGMENTED NEUTROPHIL # 6.2 K/uL (1.8-7.8); SEGMENTED NEUTROPHIL % 60 %
[2016-10-22 08:59] LABS: BASOPHIL # 0.1 K/uL (0.0-0.2); BASOPHIL % 0.4 %; EOSINOPHIL # 0.3 K/uL (0.0-0.5); EOSINOPHIL % 2.8 %; HEMATOCRIT 30.3 % (33.0-46.0); HEMOGLOBIN 9.2 g/dL (10.0-15.0); IMMATURE GRANULOCYTE # 0.4 K/uL (0.0-0.3); IMMATURE GRANULOCYTE % 3.5 %; LYMPHOCYTE # 1.3 K/uL (0.8-4.0); LYMPHOCYTE % 11.1 %; MCH 30.9 pg (27.0-34.0); MCHC 30.4 gm/dL (32.0-36.5); MCV 101.7 fl (83.0-98.0); MONOCYTE # 1.1 K/uL (0.0-1.0); MONOCYTE % 9.1 %; MPV 9.6 fl (9.4-12.4); NEUTROPHIL # (ANC) 8.5 K/uL (1.8-7.8); NEUTROPHIL % 73.1 %; NRBC % 0 /100WBC (0-0.00); PLATELET COUNT 197 K/uL (150-450); RBC 2.98 M/uL (3.50-5.50); RDW-CV 23.2 % (11.9-14.6); WBC 11.7 K/uL (4.0-11.0)
[2016-10-22 09:03] LABS: INR - (THERAPEUTIC) 2.44 (0.92-1.07); PROTIME 25.9 SECONDS (9.8-11.4)
[2016-10-22 09:08] LABS: ALBUMIN 3.2 gm/dL (3.5-5.0); PHOSPHORUS 4.8 mg/dL (2.5-4.9)
[2016-10-22 09:11] LABS: CALCIUM 7.1 mg/dL (8.5-10.5); CREATININE 4.5 mg/dL (0.5-1.1)
[2016-10-23 03:31] LABS: BASOPHIL # 0.1 K/uL (0.0-0.2); BASOPHIL % 0.4 %; EOSINOPHIL # 0.3 K/uL (0.0-0.5); EOSINOPHIL % 2.7 %; HEMATOCRIT 30.4 % (33.0-46.0); HEMOGLOBIN 9.2 g/dL (10.0-15.0); IMMATURE GRANULOCYTE # 0.5 K/uL (0.0-0.3); IMMATURE GRANULOCYTE % 4.6 %; LYMPHOCYTE # 1.6 K/uL (0.8-4.0); LYMPHOCYTE % 14.4 %; MCH 31.4 pg (27.0-34.0); MCHC 30.3 gm/dL (32.0-36.5); MCV 103.8 fl (83.0-98.0); MONOCYTE # 1.6 K/uL (0.0-1.0); MONOCYTE % 14.3 %; MPV 9.7 fl (9.4-12.4); NEUTROPHIL # (ANC) 7.1 K/uL (1.8-7.8); NEUTROPHIL % 63.6 %; NRBC % 0.4 /100WBC (0-0.00); PLATELET COUNT 197 K/uL (150-450); RBC 2.93 M/uL (3.50-5.50); RDW-CV 23.4 % (11.9-14.6); WBC 11.2 K/uL (4.0-11.0)
[2016-10-23 03:41] LABS: INR - (THERAPEUTIC) 1.61 (0.92-1.07)
[2016-10-24 08:25] LABS: BASOPHIL # 0.1 K/uL (0.0-0.2); BASOPHIL % 0.6 %; EOSINOPHIL # 0.4 K/uL (0.0-0.5); EOSINOPHIL % 3.6 %; HEMATOCRIT 31.1 % (33.0-46.0); HEMOGLOBIN 9.4 g/dL (10.0-15.0); IMMATURE GRANULOCYTE # 0.5 K/uL (0.0-0.3); IMMATURE GRANULOCYTE % 4.9 %; LYMPHOCYTE # 1.5 K/uL (0.8-4.0); LYMPHOCYTE % 14.6 %; MCH 30.9 pg (27.0-34.0); MCHC 30.2 gm/dL (32.0-36.5); MCV 102.3 fl (83.0-98.0); MONOCYTE # 1.3 K/uL (0.0-1.0); MPV 9.4 fl (9.4-12.4); NEUTROPHIL # (ANC) 6.8 K/uL (1.8-7.8); NEUTROPHIL % 64.3 %; NRBC % 0.2 /100WBC (0-0.00); PLATELET COUNT 188 K/uL (150-450); RBC 3.04 M/uL (3.50-5.50); WBC 10.5 K/uL (4.0-11.0)
[2016-10-24 08:31] LABS: INR - (THERAPEUTIC) 1.61 (0.92-1.07)
[2016-10-24 08:40] LABS: ALBUMIN 3.4 gm/dL (3.5-5.0); ANION GAP 15.1 (10.0-19.0); CALCIUM 7.6 mg/dL (8.5-10.5); POTASSIUM 5.1 mMol/L (3.7-5.1)
[2016-10-24 08:41] LABS: CREATININE 4.1 mg/dL (0.5-1.1)
[2016-10-25 04:27] LABS: BASOPHIL # 0.1 K/uL (0.0-0.2); BASOPHIL % 0.9 %; EOSINOPHIL # 0.4 K/uL (0.0-0.5); EOSINOPHIL % 4.1 %; IMMATURE GRANULOCYTE # 0.4 K/uL (0.0-0.3); IMMATURE GRANULOCYTE % 4.1 %; LYMPHOCYTE # 1.5 K/uL (0.8-4.0); LYMPHOCYTE % 17.3 %; MCH 31.3 pg (27.0-34.0); MCHC 28.1 gm/dL (32.0-36.5); MONOCYTE # 1.2 K/uL (0.0-1.0); MONOCYTE % 13.1 %; MPV 9.5 fl (9.4-12.4); NEUTROPHIL # (ANC) 5.3 K/uL (1.8-7.8); NEUTROPHIL % 60.5 %; NRBC % 0.6 /100WBC (0-0.00); PLATELET COUNT 204 K/uL (150-450); RBC 2.88 M/uL (3.50-5.50); RDW-CV 23.5 % (11.9-14.6); WBC 8.8 K/uL (4.0-11.0)
[2016-10-25 04:28] LABS: MCV 111.1 fl (83.0-98.0)
[2016-10-25 04:32] LABS: INR - (THERAPEUTIC) 1.49 (0.92-1.07); PROTIME 15.7 SECONDS (9.8-11.4)
[2016-10-26 05:26] LABS: BASOPHIL # 0.1 K/uL (0.0-0.2); BASOPHIL % 0.6 %; EOSINOPHIL # 0.3 K/uL (0.0-0.5); EOSINOPHIL % 2.5 %; HEMATOCRIT 34.8 % (33.0-46.0); HEMOGLOBIN 10.1 g/dL (10.0-15.0); IMMATURE GRANULOCYTE # 0.5 K/uL (0.0-0.3); IMMATURE GRANULOCYTE % 4.4 %; LYMPHOCYTE # 1.5 K/uL (0.8-4.0); LYMPHOCYTE % 14.4 %; MCH 30.9 pg (27.0-34.0); MCV 106.4 fl (83.0-98.0); MONOCYTE # 1.1 K/uL (0.0-1.0); MONOCYTE % 10.5 %; MPV 9.3 fl (9.4-12.4); NEUTROPHIL # (ANC) 7.2 K/uL (1.8-7.8); NEUTROPHIL % 67.6 %; NRBC % 0.3 /100WBC (0-0.00); PLATELET COUNT 182 K/uL (150-450); RBC 3.27 M/uL (3.50-5.50); RDW-CV 23.2 % (11.9-14.6); WBC 10.7 K/uL (4.0-11.0)
[2016-10-26 05:33] LABS: INR - (THERAPEUTIC) 1.39 (0.92-1.07); PROTIME 14.6 SECONDS (9.8-11.4)
[2016-10-27 09:05] LABS: BASOPHIL % 0.4 %; EOSINOPHIL # 0.3 K/uL (0.0-0.5); EOSINOPHIL % 2.6 %; HEMOGLOBIN 8.3 g/dL (10.0-15.0); IMMATURE GRANULOCYTE # 0.4 K/uL (0.0-0.3); IMMATURE GRANULOCYTE % 3.2 %; LYMPHOCYTE # 1.2 K/uL (0.8-4.0); LYMPHOCYTE % 11.1 %; MCH 31.2 pg (27.0-34.0); MCHC 30.1 gm/dL (32.0-36.5); MCV 103.8 fl (83.0-98.0); MONOCYTE # 1.3 K/uL (0.0-1.0); MONOCYTE % 11.6 %; MPV 9.3 fl (9.4-12.4); NEUTROPHIL # (ANC) 7.7 K/uL (1.8-7.8); NEUTROPHIL % 71.1 %; NRBC % 0 /100WBC (0-0.00); PLATELET COUNT 153 K/uL (150-450); RBC 2.66 M/uL (3.50-5.50); RDW-CV 22.2 % (11.9-14.6); WBC 10.9 K/uL (4.0-11.0)
[2016-10-27 09:06] LABS: HEMATOCRIT 27.6 % (33.0-46.0)
[2016-10-27 09:18] LABS: ALBUMIN 3.4 gm/dL (3.5-5.0); CALCIUM 7.9 mg/dL (8.5-10.5); PHOSPHORUS 6.3 mg/dL (2.5-4.9)
[2016-10-27 09:21] LABS: CREATININE 5.2 mg/dL (0.5-1.1)
[2016-10-27 09:22] LABS: INR - (THERAPEUTIC) 1.52 (0.92-1.07)
[2016-10-28 05:58] LABS: BASOPHIL # 0.1 K/uL (0.0-0.2); BASOPHIL % 0.6 %; EOSINOPHIL # 0.3 K/uL (0.0-0.5); HEMATOCRIT 29.3 % (33.0-46.0); HEMOGLOBIN 8.7 g/dL (10.0-15.0); IMMATURE GRANULOCYTE # 0.5 K/uL (0.0-0.3); IMMATURE GRANULOCYTE % 4.7 %; LYMPHOCYTE # 1.3 K/uL (0.8-4.0); LYMPHOCYTE % 12.8 %; MCH 30.7 pg (27.0-34.0); MCHC 29.7 gm/dL (32.0-36.5); MCV 103.5 fl (83.0-98.0); MONOCYTE # 1.5 K/uL (0.0-1.0); MONOCYTE % 14.5 %; MPV 9.6 fl (9.4-12.4); NEUTROPHIL # (ANC) 6.6 K/uL (1.8-7.8); NEUTROPHIL % 64.4 %; NRBC % 0.4 /100WBC (0-0.00); RBC 2.83 M/uL (3.50-5.50); RDW-CV 23.1 % (11.9-14.6); WBC 10.3 K/uL (4.0-11.0)
[2016-10-28 06:00] LABS: PLATELET COUNT 206 K/uL (150-450)
[2016-10-28 06:01] LABS: INR - (THERAPEUTIC) 1.51 (0.92-1.07); PROTIME 15.9 SECONDS (9.8-11.4)
[2016-10-28 19:24] LABS: BASOPHIL # 0.1 K/uL (0.0-0.2); BASOPHIL % 0.6 %; EOSINOPHIL # 0.3 K/uL (0.0-0.5); HEMATOCRIT 29.2 % (33.0-46.0); HEMOGLOBIN 8.7 g/dL (10.0-15.0); IMMATURE GRANULOCYTE # 0.4 K/uL (0.0-0.3); IMMATURE GRANULOCYTE % 3.7 %; LYMPHOCYTE # 1.6 K/uL (0.8-4.0); LYMPHOCYTE % 14.8 %; MCH 31.2 pg (27.0-34.0); MCHC 29.8 gm/dL (32.0-36.5); MCV 104.7 fl (83.0-98.0); MONOCYTE # 1.4 K/uL (0.0-1.0); MONOCYTE % 13.1 %; MPV 9.6 fl (9.4-12.4); NEUTROPHIL # (ANC) 6.8 K/uL (1.8-7.8); NEUTROPHIL % 64.8 %; NRBC % 0.4 /100WBC (0-0.00); PLATELET COUNT 182 K/uL (150-450); RBC 2.79 M/uL (3.50-5.50); RDW-CV 22.7 % (11.9-14.6); WBC 10.5 K/uL (4.0-11.0)
[2016-10-28 19:41] LABS: ANION GAP 16.5 (10.0-19.0); BLOOD UREA NITROGEN 24 mg/dL (6-24); CALCIUM 8.1 mg/dL (8.5-10.5); CHLORIDE 101 mMol/L (96-110); CO2 24 mMol/L (22-32); CPK 60 IU/L (21-215); CREATININE 3.2 mg/dL (0.5-1.1); MAGNESIUM 2.4 mg/dL (1.8-2.6); POTASSIUM 4.5 mMol/L (3.7-5.1); SODIUM 137 mMol/L (135-145)
[2016-10-28 19:46] LABS: ESTIMATED GFR (MDRD EQUATION) 14
[2016-10-29 09:02] LABS: BASOPHIL # 0.1 K/uL (0.0-0.2); BASOPHIL % 0.4 %; EOSINOPHIL # 0.4 K/uL (0.0-0.5); EOSINOPHIL % 2.8 %; HEMATOCRIT 25.8 % (33.0-46.0); IMMATURE GRANULOCYTE # 0.5 K/uL (0.0-0.3); IMMATURE GRANULOCYTE % 3.5 %; LYMPHOCYTE # 1.3 K/uL (0.8-4.0); LYMPHOCYTE % 9.6 %; MCH 31.6 pg (27.0-34.0); MCHC 29.8 gm/dL (32.0-36.5); MCV 105.7 fl (83.0-98.0); MONOCYTE # 1.5 K/uL (0.0-1.0); MONOCYTE % 11.2 %; MPV 9.6 fl (9.4-12.4); NEUTROPHIL # (ANC) 9.8 K/uL (1.8-7.8); NEUTROPHIL % 72.5 %; NRBC % 0.1 /100WBC (0-0.00); PLATELET COUNT 186 K/uL (150-450); RBC 2.44 M/uL (3.50-5.50); RDW-CV 22.3 % (11.9-14.6); WBC 13.5 K/uL (4.0-11.0)
[2016-10-29 09:03] LABS: HEMOGLOBIN 7.7 g/dL (10.0-15.0)
[2016-10-29 09:09] LABS: INR - (THERAPEUTIC) 1.51 (0.92-1.07); PROTIME 15.9 SECONDS (9.8-11.4)
[2016-10-29 09:14] LABS: ALBUMIN 3.2 gm/dL (3.5-5.0); ANION GAP 16.6 (10.0-19.0); CREATININE 3.5 mg/dL (0.5-1.1); PHOSPHORUS 3.8 mg/dL (2.5-4.9); POTASSIUM 4.6 mMol/L (3.7-5.1)
[2016-10-30 06:07] LABS: BASOPHIL % 0.3 %; EOSINOPHIL # 0.3 K/uL (0.0-0.5); EOSINOPHIL % 2.8 %; HEMATOCRIT 22.7 % (33.0-46.0); IMMATURE GRANULOCYTE # 0.3 K/uL (0.0-0.3); IMMATURE GRANULOCYTE % 2.9 %; LYMPHOCYTE # 1.2 K/uL (0.8-4.0); LYMPHOCYTE % 10.8 %; MCH 30.8 pg (27.0-34.0); MCHC 28.6 gm/dL (32.0-36.5); MCV 107.6 fl (83.0-98.0); MONOCYTE # 1.9 K/uL (0.0-1.0); MONOCYTE % 17.2 %; MPV 9.8 fl (9.4-12.4); NEUTROPHIL # (ANC) 7.1 K/uL (1.8-7.8); NRBC % 0.4 /100WBC (0-0.00); PLATELET COUNT 183 K/uL (150-450); RBC 2.11 M/uL (3.50-5.50); RDW-CV 22.4 % (11.9-14.6); WBC 10.8 K/uL (4.0-11.0)
[2016-10-30 06:08] LABS: HEMOGLOBIN 6.5 g/dL (10.0-15.0)
[2016-10-30 06:12] LABS: INR - (THERAPEUTIC) 1.31 (0.92-1.07); PROTIME 13.8 SECONDS (9.8-11.4)
[2016-10-30 06:17] LABS: ANION GAP 13.8 (10.0-19.0); CALCIUM 7.7 mg/dL (8.5-10.5); MAGNESIUM 2.1 mg/dL (1.8-2.6); POTASSIUM 4.8 mMol/L (3.7-5.1)
== END 2016-10-30 11:20 | DRG 233 ==
LOC: GPCU 08:36 → GCAT 08:36 → GPOC 09:00 → GPCU 12:40 → GICU 12:41 → EDSEX 12:41 → GPCU 12:41 → GCAT 12:41 → GPCU 12:41 → GICU 09-17 11:21 → GPCU 09-19 14:34
PROVIDERS: Hospitalist; Internal Medicine; Internal Medicine Interventional Cardiology; Internal Medicine Nephrology; Nurse Practitioner; Radiology Diagnostic Radiology; Thoracic Surgery (Cardiothoracic Vascular Surgery); ADMIT Surgery Vascular Surgery
PROC: 3E1M39Z Irrigation of Peritoneal Cavity using Dialysate, Percutaneous Approach (ICD-10-PCS; 2016-09-12)
PROC: B40D1ZZ Plain Radiography of Aorta and Bilateral Lower Extremity Arteries using Low Osmolar Contrast (ICD-10-PCS; 2016-09-12)
PROC: 4A023N7 Measurement of Cardiac Sampling and Pressure, Left Heart, Percutaneous Approach (ICD-10-PCS; 2016-09-15)
PROC: B2111ZZ Fluoroscopy of Multiple Coronary Arteries using Low Osmolar Contrast (ICD-10-PCS; 2016-09-15)
PROC: 0211093 Bypass Coronary Artery, Two Arteries from Coronary Artery with Autologous Venous Tissue, Open Approach (ICD-10-PCS; principal; 2016-09-17)
PROC: 02HP32Z Insertion of Monitoring Device into Pulmonary Trunk, Percutaneous Approach (ICD-10-PCS; principal; 2016-09-17)
PROC: 06BY0ZZ Excision of Lower Vein, Open Approach (ICD-10-PCS; principal; 2016-09-17)
PROC: 02HV33Z Insertion of Infusion Device into Superior Vena Cava, Percutaneous Approach (ICD-10-PCS; principal; 2016-09-17)
PROC: B24BZZ4 Ultrasonography of Heart with Aorta, Transesophageal (ICD-10-PCS; principal; 2016-09-17)
PROC: 04UK0KZ Supplement Right Femoral Artery with Nonautologous Tissue Substitute, Open Approach (ICD-10-PCS; principal; 2016-09-17)
PROC: 0HD5XZZ Extraction of Chest Skin, External Approach (ICD-10-PCS; principal; 2016-09-17)
PROC: 04CK0ZZ Extirpation of Matter from Right Femoral Artery, Open Approach (ICD-10-PCS; principal; 2016-09-17)
PROC: 30233N1 Transfusion of Nonautologous Red Blood Cells into Peripheral Vein, Percutaneous Approach (ICD-10-PCS; 2016-09-17)
PROC: 0WHG33Z Insertion of Infusion Device into Peritoneal Cavity, Percutaneous Approach (ICD-10-PCS; 2016-09-20)
PROC: B2141ZZ Fluoroscopy of Right Heart using Low Osmolar Contrast (ICD-10-PCS; 2016-09-22)
PROC: B244ZZZ Ultrasonography of Right Heart (ICD-10-PCS; 2016-09-22)
PROC: 02H633Z Insertion of Infusion Device into Right Atrium, Percutaneous Approach (ICD-10-PCS; 2016-09-22)
PROC: 5A1D60Z (ICD-10-PCS; 2016-09-22)
PROC: 0Y6P0Z0 Detachment at Right 1st Toe, Complete, Open Approach (ICD-10-PCS; 2016-09-30)
PROC: 0HDKXZZ Extraction of Right Lower Leg Skin, External Approach (ICD-10-PCS; 2016-09-30)
PROC: 0HD7XZZ Extraction of Abdomen Skin, External Approach (ICD-10-PCS; 2016-09-30)
PROC: 30233K1 Transfusion of Nonautologous Frozen Plasma into Peripheral Vein, Percutaneous Approach (ICD-10-PCS; 2016-09-30)
PROC: 0DH67UZ Insertion of Feeding Device into Stomach, Via Natural or Artificial Opening (ICD-10-PCS; 2016-10-02)
PROC: 0HD5XZZ Extraction of Chest Skin, External Approach (ICD-10-PCS; 2016-10-24)
DX: I70.229 Atherosclerosis of native arteries of extremities with rest pain, unspecified extremity (principal); G93.40 Encephalopathy, unspecified; A41.59 Other Gram-negative sepsis; E43 Unspecified severe protein-calorie malnutrition; J15.6 Pneumonia due to other Gram-negative bacteria; I50.23 Acute on chronic systolic (congestive) heart failure; K65.9 Peritonitis, unspecified; N18.6 End stage renal disease; I96 Gangrene, not elsewhere classified; I13.2 Hypertensive heart and chronic kidney disease with heart failure and with stage 5 chronic kidney disease, or end stage renal disease; L02.214 Cutaneous abscess of groin; T81.4XXA Infection following a procedure, initial encounter; T81.31XA Disruption of external operation (surgical) wound, not elsewhere classified, initial encounter; N25.81 Secondary hyperparathyroidism of renal origin; F33.2 Major depressive disorder, recurrent severe without psychotic features; Q61.2 Polycystic kidney, adult type; I25.110 Atherosclerotic heart disease of native coronary artery with unstable angina pectoris; E87.2 Acidosis; D62 Acute posthemorrhagic anemia; L02.213 Cutaneous abscess of chest wall; I48.92 Unspecified atrial flutter; Z51.5 Encounter for palliative care; I25.84 Coronary atherosclerosis due to calcified coronary lesion; E78.5 Hyperlipidemia, unspecified; Z68.27 Body mass index [BMI] 27.0-27.9, adult; Z99.2 Dependence on renal dialysis; E87.6 Hypokalemia; I25.5 Ischemic cardiomyopathy; I95.3 Hypotension of hemodialysis; Z79.01 Long term (current) use of anticoagulants; I48.0 Paroxysmal atrial fibrillation; F41.9 Anxiety disorder, unspecified; B95.62 Methicillin resistant Staphylococcus aureus infection as the cause of diseases classified elsewhere; Y83.2 Surgical operation with anastomosis, bypass or graft as the cause of abnormal reaction of the patient, or of later complication, without mention of misadventure at the time of the procedure; Z87.891 Personal history of nicotine dependence; G47.00 Insomnia, unspecified; K21.9 Gastro-esophageal reflux disease without esophagitis; D63.1 Anemia in chronic kidney disease; E89.0 Postprocedural hypothyroidism; B96.1 Klebsiella pneumoniae [K. pneumoniae] as the cause of diseases classified elsewhere; B35.1 Tinea unguium; Z86.73 Personal history of transient ischemic attack (TIA), and cerebral infarction without residual deficits; Z86.19 Personal history of other infectious and parasitic diseases; Z96.641 Presence of right artificial hip joint; Z79.82 Long term (current) use of aspirin; D72.829 Elevated white blood cell count, unspecified; R19.7 Diarrhea, unspecified; I95.1 Orthostatic hypotension; R73.9 Hyperglycemia, unspecified; D69.6 Thrombocytopenia, unspecified; D50.9 Iron deficiency anemia, unspecified; K12.1 Other forms of stomatitis; T46.0X5A Adverse effect of cardiac-stimulant glycosides and drugs of similar action, initial encounter; K59.00 Constipation, unspecified; R13.10 Dysphagia, unspecified; E83.51 Hypocalcemia; B37.2 Candidiasis of skin and nail
CPT/HCPCS: A9270; A9500; C1750; C1751; C1769; C1887; J0171; J0282; J0610; J0690; J0696; J0885; J1100; J1160; J1170; J1200; J1250; J1644; J1720; J1756; J1885; J2001; J2020; J2060; J2150; J2185; J2250; J2270; J2370; J2405; J2440; J2550; J2720; J2785; J2916; J2997; J3010; J3370; J3475; J3480; J3490; J7030; J7040; J7050; J7060; J7121; P9016; P9017; P9045; P9047; Q0162; Q4081